=== PATIENT | female | born 1990 | race Caucasian/White ===

== ENCOUNTER 2022-07-08 11:52 | Emergency (ER) | payer OTHER, SELFPAY ==
[2022-07-08 12:01] VITALS: BP 108/48; PULSE 99; RESP 16; TEMP 37.2; O2SAT 100
--- NOTE | 2022-07-08 12:05 | ECG_ITS ---
Measurements Intervals [place] Rate: 96 P: 25 OR: 169 QRS: 59 QRSD: 74 T: 23 QT: 326 QTc: 412 Interpretive Statements SINUS RHYTHM BORDERLINE ST-T WAVE ABNORMALITY- INFERIOR LEADS BORDERLINE ECG NO PREVIOUS ECG AVAILABLE FOR COMPARISON Electronically Signed On 07-08-2022 12:29:08 CRM SYSTEM ADMINISTRATOR by Vin Leach D.O.
[2022-07-08 13:03] VITALS: BP 104/62; BP 107/60; BP 109/58; PULSE 90; PULSE 92; PULSE 97; RESP 18; O2SAT 100
[2022-07-08 13:05] VITALS: BP 113/67; PULSE 105
[2022-07-08 13:38] LABS: Appearance Urine Clear (Clear); Bilirubin Urine Negative (Negative); Blood Urine Negative (Negative); Color Urine Yellow (Yellow); Glucose Urine UA Negative (Negative); Ketones Urine Negative (Negative); Leukocyte Esterase Ur Negative LEU/UL (Negative); Nitrate Urine Negative (Negative); Protein Urine Negative (Negative); Urobilinogen Urine 0.2 mg/dL (<2.0); pH Urine 6.5 (5.0-9.0)
[2022-07-08] MEDS: SODIUM CHLORIDE 0.9% IV 1,000 ML 999 ML IV CONT (13:50)
[2022-07-08 14:08] LABS: Influenza A QL RT-PCR Positive (Negative); Influenza B QL RT-PCR Negative (Negative); SARS-CoV-2 RNA PCR Negative
[2022-07-08 14:12] LABS: Add Urine Microscopic? NO
[2022-07-08 14:16] LABS: Hematocrit 33.9 % (37.0-47.0); Hemoglobin 11.7 g/dL (12.0-15.0); Mean Corpuscular HGB Conc 34.5 g/dl (32-36); Mean Corpuscular Volume 89.7 fl (80-100); Mean Platelet Volume 10.2 fl (7.4-10.4); Platelet Count Result 190 k/mm3 (150-375); Red Blood Count 3.78 M/mm3 (4.2-5.4); Red Cell Distribution Width 12.7 % (11.5-14.5); White Blood Count 6.9 K/mm3 (4.5-10.0)
[2022-07-08 14:20] LABS: Anion Gap 7 mmol/L (8-16); Blood Urea Nitrogen 7 mg/dL (7-17); Calcium 9.1 mg/dL (8.4-10.2); Carbon Dioxide 22 mmol/L (22-30); Chloride 103 mmol/L (98-107); Estimated CRCL calculation 115 ml/min; Estimated Glomerular Filt Rate > 60; Glucose 87 mg/dL (65-110); Potassium 3.6 mmol/L (3.4-5.0); Sodium 132 mmol/L (137-145)
[2022-07-08 14:41] LABS: Band Neutrophils Percent 7 % (0-6); Eosinophils Absolute Manual 0.06 K/mm3 (0.02-0.5); Eosinophils Percent Manual 1 % (0-4); Lymphocytes Absolute Manual 0.06 K/mm3 (1.1-4.5); Monocytes Absolute Manual 0.27 K/mm3 (0.1-0.90); Monocytes Percent Manual 4 % (3-9); Neutrophils Absolute Manual 6.48 K/mm3 (1.7-7.2); Neutrophils Percent Manual 87 % (46-73); Platelet Estimate Adequate (Adequate); Schistocytes None Seen (NORMAL); Total Cells Counted 100
--- NOTE | 2022-07-08 15:09 | ED.SYNCOPE ---
HPI - Syncope General Chief Complaint: Syncope Stated Complaint: , syncope Time Seen by Provider: 07/08/22 12:39 History of Present Illness HPI narrative: Patient is a 31-year-old female who presents ER after a near syncopal episode at work. She felt her self blacking out and lowered herself to the ground. She has been having a cough and fatigue over the last 2 days. Reports she had COVID a couple weeks ago. No chest pain or chest pressure. No urinary frequency urgency or dysuria. She reports she has not yet eaten today. No vaginal bleeding or leakage of fluid. She is 13 weeks in gestation. Related Data Allergies Allergy/AdvReac Type Severity Reaction Status Date / Time No Known Allergies Allergy Verified 07/08/22 13:48 Review of Systems Review of Systems: All systems reviewed & are unremarkable except as noted in HPI and below Constitutional: Constitutional: Denies chills, Reports fatigue, Reports fever(s) and Reports weakness ENT: Reports nasal congestion and Reports sore throat Cardiovascular: Cardiovascular: Denies chest pain, Denies rapid heart rate and Denies radiating jaw, neck or arm pain Respiratory: Respiratory: Denies cough and Denies dyspnea Gastrointestinal: Gastrointestinal: Denies abdominal pain, Denies nausea and Denies vomiting Musculoskeletal: Musculoskeletal: Reports myalgias, Denies arthralgias and Denies joint swelling Neurologic: Reports syncope (near), Denies headache(s), Denies focal weakness and Denies numbness PMFSH Past Medical History Medical History (Updated 07/08/22 @ 15:21 by Martín Garcia MD) Healthy female adult Surgical History Surgical History (Updated 07/08/22 @ 15:21 by Martín Garcia MD) No history of previous surgery Social History Social History (Updated 07/08/22 @ 15:21 by Martín Garcia MD) Smoking status: Never smoker Exam Narrative: GENERAL: Well-appearing, well-nourished, and in no acute distress. HEAD: Normocephalic, atraumatic. ENT: Mucous membranes moist. CHEST: Clear to auscultation. No respiratory distress. HEART: Regular rate and rhythm. Normal peripheral pulses. ABDOMEN: Soft, nontender, nondistended. EXTREMITIES: Normal range of motion. No edema. SKIN: Warm, dry, no rash. NEURO: Alert and oriented x3. PSYCH: Normal mood and affect. Course Course Emergency Course: Patient resting comfortably. Hydrated. Informed of results. heart tones present. Will start on Tamiflu. Vital Signs Vital signs: Vital Signs Temperature 99 F 07/08/22 12:01 Pulse Rate 99 07/08/22 12:01 Respiratory Rate 16 07/08/22 12:01 Blood Pressure 108/48 L 07/08/22 12:01 Pulse Oximetry 100 07/08/22 12:01 Oxygen Delivery Room Air 07/08/22 12:01 Temperature 99 F 07/08/22 12:01 Pulse Rate 105 H 07/08/22 13:05 Respiratory Rate 18 07/08/22 13:03 Blood Pressure 113/67 07/08/22 13:05 Pulse Oximetry 100 07/08/22 13:03 Oxygen Delivery Room Air 07/08/22 12:01 MDM - Syncope Lab Data Result diagrams: 07/08/22 13:42 07/08/22 13:42 Labs: Lab Results 07/08/22 07/08/22 07/08/22 Range/Units 13:16 13:16 13:42 WBC 6.9 (4.5-10.0) K/mm3 RBC 3.78 L (4.2-5.4) M/mm3 Hgb 11.7 L (12.0-15.0) g/dL Hct 33.9 L (37.0-47.0) % MCV 89.7 (80-100) fl MCH 31.0 (26-34) pg MCHC 34.5 (32-36) g/dl RDW 12.7 (11.5-14.5) % Plt Count 190 (150-375) k/mm3 MPV 10.2 (7.4-10.4) fl Immature Gran % (Auto) Not Reportable Neut % (Auto) Not Reportable Lymph % (Auto) Not Reportable [place] % (Auto) Not Reportable Eos % (Auto) Not Reportable Baso % (Auto) Not Reportable Lymph # (Auto) Not Reportable [place] # (Auto) Not Reportable Eos # (Auto) Not Reportable Baso # (Auto) Not Reportable Abs Immat Gran (auto) Not Reportable Absolute Neuts (auto) Not Reportable Absolute Nucleated RBC Not Repo
[2022-07-08 15:19] VITALS: BP 104/67; PULSE 90; RESP 18; O2SAT 100
== END 2022-07-08 15:43 | disposition home or self-care (01) ==
PROVIDERS: Emergency Provider Emergency Medicine; PCP Obstetrics & Gynecology
DX: O99.511 Diseases of the respiratory system complicating pregnancy, first trimester (principal); J10.1 Influenza due to other identified influenza virus with other respiratory manifestations; R55 Syncope and collapse; Z20.822 Contact with and (suspected) exposure to COVID-19; Z86.16 Personal history of COVID-19; Z3A.13 13 weeks gestation of pregnancy
CPT/HCPCS: 36415; 80048; 81003; 81025; 85025; 87636; 93005; 96360; 99283; J7030

== ENCOUNTER 2023-01-05 18:49 | Inpatient (IN) | payer BC, SELFPAY ==
--- NOTE | 2023-01-05 19:16 | LDADM ---
This patient, Celena Foley, was admitted to Labor/Delivery/Recovery 108 on 01/05/23 at 18:49. Plans for labor, pain management and were discussed with patient. Patient/family oriented to hospital policies and general routines including ID bracelet, bed and alarms, visiting hours, pain management, procedures, bathroom and other care routines, personal items, smoking policy, room service/diet and guest tray routines, security routines, and visiting hours. Patient/Family are encouraged to report perceived risks to care and to ask questions if they do not understand what they are told or what they should do. See OBIX for further documentation.
[2023-01-05 19:21] VITALS: BMI 36.3
[2023-01-05 20:04] LABS: Basophils Percent Auto 0.3 % (0.2-1.2); Eosinophils Percent Auto 0.4 % (0-4.4); Hematocrit 35.6 % (37.0-47.0); Hemoglobin 12.2 g/dL (12.0-15.0); Immature Granulocyte Absolute 0.09 K/mm3 (0.00-0.031); Immature Platelet Fraction Pct 11.1 % (0.9-11.2); Lymphocytes Absolute Auto 1.92 K/mm3 (0.9-3.2); Lymphocytes Percent Auto 21.1 % (18.3-44.2); Mean Corpuscular HGB Conc 34.3 g/dl (32-36); Mean Corpuscular Volume 90.4 fl (80-100); Mean Platelet Volume 11.9 fl (7.4-10.4); Monocytes Absolute Auto 0.6 K/mm3 (0.1-0.6); Monocytes Percent Auto 6.8 % (2.6-8.5); Neutrophils Absolute Auto 6.4 K/mm3 (1.3-6.7); Neutrophils Percent Auto 70.4 % (45.5-73.1); Platelet Count Result 122 k/mm3 (150-375); Red Blood Count 3.94 M/mm3 (4.2-5.4); Red Cell Distribution Width 13.5 % (11.5-14.5); White Blood Count 9.1 K/mm3 (4.5-10.0)
[2023-01-05 20:20] VITALS: BP 122/57; PULSE 63
[2023-01-05 20:30] VITALS: BP 119/69; PULSE 61
[2023-01-05 20:33] LABS: Platelet Estimate Adequate (Adequate)
[2023-01-05 20:34] LABS: Anisocytosis 2+ (NORMAL); Microcytosis 2+ (NORMAL); Tear Drop Cells 1+ (NORMAL)
[2023-01-05 20:35] LABS: Burr Cells 2+ (NORMAL); Schistocytes None Seen (NORMAL)
[2023-01-05 20:36] LABS: Poikilocytosis 2+ (NORMAL)
[2023-01-05] MEDS: LACTATED RINGERS 1,000 ML 125 ML IV CONT (20:36)
[2023-01-05] MEDS: OXYTOCIN 30 UNITS/NS 500 ML 30 UNITS/500 ML BAG IV CONT (20:38)
[2023-01-05 20:45] VITALS: BP 124/65; PULSE 70
--- NOTE | 2023-01-05 22:58 | WPDANESEPPF ---
Anes - Initial Pre Proc Eval Procedure: Labor epidural Date/Time: 01/05/23 22:58 Surgeon: Marci Don CNM Pre Op Diagnosis: Abdominal pain with contractions Pre Op Diagnosis: IOL Patient Data Age: 32 Gender: F Height: 1.57 m Weight: 90 kg Last Vital Signs Pulse 70 01/05/23 20:45 BP 124/65 01/05/23 20:45 O2 Del Method Room Air 01/05/23 19:16 Allergies Allergy/AdvReac Type Severity Reaction Status Date / Time No Known Allergies Allergy Verified 12/12/22 13:54 Home Medications Medication Instructions Recorded Confirmed Type cetirizine 5 mg tablet 5 mg PO DAILY PRN Allergy Symptoms 12/12/22 12/12/22 History prenat.vits,funmi,[id number] 1 tablet PO DAILY 12/12/22 12/12/22 History Laboratory Tests 01/05/23 19:36 WBC 9.1 K/mm3 (4.5-10.0) RBC 3.94 L M/mm3 (4.2-5.4) Hgb 12.2 g/dL (12.0-15.0) Hct 35.6 L % (37.0-47.0) MCV 90.4 fl (80-100) MCH 31.0 pg (26-34) MCHC 34.3 g/dl (32-36) RDW 13.5 % (11.5-14.5) Plt Count 122 L k/mm3 (150-375) MPV 11.9 H fl (7.4-10.4) Immature Gran % (Auto) 1.0 H % (0-0.5) Neut % (Auto) 70.4 % (45.5-73.1) Lymph % (Auto) 21.1 % (18.3-44.2) [place] % (Auto) 6.8 % (2.6-8.5) Eos % (Auto) 0.4 % (0-4.4) Baso % (Auto) 0.3 % (0.2-1.2) Lymph # (Auto) 1.92 K/mm3 (0.9-3.2) [place] # (Auto) 0.6 K/mm3 (0.1-0.6) Eos # (Auto) 0.0 K/mm3 (0-0.3) Baso # (Auto) 0.0 K/mm3 (0.0-0.1) Abs Immat Gran (auto) 0.09 H K/mm3 (0.00-0.031) Absolute Neuts (auto) 6.4 K/mm3 (1.3-6.7) Absolute Nucleated RBC 0.0 K/mm3 (0.0-0.012) Nucleated RBC % 0.0 % (0.0-0.2) Platelet Estimate Adequate (Adequate) % Immature Plt Fraction 11.1 % (0.9-11.2) Poikilocytosis 2+ (NORMAL) Anisocytosis 2+ (NORMAL) Microcytosis 2+ (NORMAL) Tear Drop Cells 1+ (NORMAL) [place] Cells 2+ (NORMAL) Schistocytes None seen (NORMAL) RPR Pending Blood Type A Positive Antibody Screen Negative : gestational age HCG: positive Patient hx anesthesia problems: none Family hx anesthesia problems: none Results Review: All pre-operative results and documents have been reviewed as part of the pre-operative evaluation. [facility] Past Medical History Medical History Healthy female adult Obesity and not yet delivered Surgical History Surgical History No history of previous surgery Family History Family History Mother Pacemaker Father Diabetes mellitus Grandparent Cancer Social History Social History (Updated 07/08/22 @ 15:21 by Martín Garcia MD) Smoking status: Never smoker Substance use: never Lack of Transportation: No Lack of Food: Never True Current Housing: I Have Housing Concerned About Future Housing: No Difficulty Paying Gas/Electric Bills: No Difficulty Paying for Meds: No Currently Unemployed: No Education: Associate Degree Difficulty w/ Childcare or Family Care: No Spiritual care concerns: No Anes - Eval Final PreProcedure Day of Procedure 01/05/23 22:58 Patient weight: obese Airway: Mallampati scale class II Neurological: alert and oriented ASA classification: II Anesthetic plan: proceed Results Review: All pre-operative results and documents have been reviewed as part of the pre-operative evaluation. Informed Consent: The patient's anesthetic plan and its attendant risks and benefits were discussed with the patient/family/POA. Questions were solicited and answers provided to the satisfaction of the patient/family/POA.
[2023-01-05 23:00] VITALS: BP 119/75; PULSE 81
[2023-01-05 23:30] VITALS: BP 85/46; PULSE 64
[2023-01-06] VITALS (153 sets, daily range): BP systolic 63–125; BP diastolic 29–93; PULSE 50–284; RESP 18; TEMP 36.2–37.6; O2SAT 97–100
[2023-01-06] MEDS: LACTATED RINGERS 1,000 ML 125 ML IV CONT (04:20)
--- NOTE | 2023-01-06 06:54 | WPDOBADMIT ---
Obstetrics - Admit Note Admission Note: record reviewed. No pertinent additions to the history and/or any subsequent changes in the physical findings that are not consistent with the expected course of the were found. IOL, SVE /-2,AROM small amount of clear, odorless fluid, anticipate vaginal delivery Additions to the history and/or subsequent changes in the physical findings follow. None.
[2023-01-06] MEDS: FAMOTIDINE 20 MG/2 ML VIAL IV PUSH (06:55)
[2023-01-06 08:03] LABS: Rapid Plasma Reagin Non-Reactive (NonReactive)
--- NOTE | 2023-01-06 13:17 | PM.OBPRVD ---
OB - Delivery Note Procedure Delivery date: 01/06/23 Procedure: Induction method: AROM and Per Pitocin Protocol Delivery monitor: External FHT and External Uterine Route of delivery: Episiotomy description: None Laceration Description: Labial (right) and Other (hymenal ring) Delivery repair: vicryl Specimen: No Quantitative Blood Loss (ml): 210 Anesthesia type: Epidural Disposition: Floor Baby Date of : 01/06/23 Time of : 12:57 Weeks of gestation at delivery: 39 gender: Male presentation: vertex position: Left Occiput Anterior Placenta delivery description: Spontaneous Cord Vessel Description: 3 Vessels, Clamped/Cut and Delayed Cord Clamping score one minute: 9 score five minutes: 9
[2023-01-06] MEDS: OXYTOCIN 30 UNITS/NS 500 ML 30 UNITS/500 ML BAG 125 UNITS IV CONT (13:29)
[2023-01-06] MEDS: WITCH HAZEL 40 PADS 1 PAD TOPICAL (15:38)
--- NOTE | 2023-01-06 16:02 | OBPPTRN ---
Patient transferred to post room #292 via wheelchair. Support person present. Oriented to unit, room, information board, rooming in, admission packet and security measures. Patient verbalizes understanding.
[2023-01-06] MEDS: ACETAMINOPHEN 325 MG TABLET 650 MG PO (16:26)
[2023-01-07] MEDS: ACETAMINOPHEN 325 MG TABLET 650 MG PO ×2 (00:42→08:12)
[2023-01-07 01:38] VITALS: BP 115/50; PULSE 70; RESP 20; TEMP 37; O2SAT 100
[2023-01-07 05:37] LABS: Hematocrit 33.3 % (37.0-47.0); Hemoglobin 11.1 g/dL (12.0-15.0)
[2023-01-07] MEDS: DOCUSATE SODIUM 100 MG CAPSULE PO (08:12)
[2023-01-07] MEDS: MULTIVIT/MIN/PREN/FOL AC/IRON TABLET 1 TAB PO (08:12)
[2023-01-07] MEDS: LANOLIN (LANSINOH) 7.5 GM CREAM 1 APPLIC TOPICAL (08:14)
--- NOTE | 2023-01-07 08:34 | PM.OBPNVD ---
OB - PN: Subj Subjective Date/time seen: 01/07/23 08:34 Patient comments: no complaints, pain well controlled, incisional pain, tolerating diet and flatus present OB - PN: Obj Data Labs 01/07/23 04:58 Labs: Laboratory Results - last 24 hr 01/07/23 04:58 Hgb 11.1 L Hct 33.3 L OB - PN A/P Plan day: 1 Plan: routine care Comments: No problems, routine care Time Spent With Patient Time: Total time spent is greater than 50% in coordination of care (as documented) at patient's floor/unit and/or counseling patient: Exam Const: General: comfortable, no acute distress and alert Resp: Effort & Inspection: normal respiratory effort Auscultation: no crackles, no rales and no rhonchi Cardio: Rate: regular rate Heart sounds: no click, no murmurs and no rubs GI: Inspection: non-distended GI Palp: No Tenderness to palpation present (GI) Auscultation: normal bowel sounds Other: Incision - CDI Extrem: General: normal to inspection, no pedal edema and no calf tenderness
[2023-01-07 09:25] VITALS: BP 112/52; PULSE 61; RESP 18; TEMP 36.7; O2SAT 99
--- NOTE | 2023-01-07 11:11 | WPDANLDPN2 ---
Anes-Prog Note L&D Date/Time: 01/07/23 11:11 Neuro status: Neuro function grossly intact. Vital Signs: Last Vital Signs Temp 36.7 C 01/07/23 09:25 Pulse 61 01/07/23 09:25 Resp 18 01/07/23 09:25 BP 112/52 L 01/07/23 09:25 Pulse Ox 99 01/07/23 09:25 O2 Del Method Room Air 01/06/23 16:02 Pain score (VAS): 0 I/O: Intake & Output 01/06/23 01/07/23 01/07/23 23:59 07:59 15:59 Intake Total 0 Balance 0 Patient feedback: Patient satisfied with anesthetic care.
[2023-01-07 13:05] VITALS: BP 121/69; PULSE 73; RESP 16; TEMP 36.5; O2SAT 100
[2023-01-07 19:05] VITALS: BP 110/43; PULSE 68; RESP 16; O2SAT 99
[2023-01-08] MEDS: ACETAMINOPHEN 325 MG TABLET 650 MG PO ×2 (02:42→08:16)
--- NOTE | 2023-01-08 07:29 | PM.OBPNVD ---
OB - PN: Subj Subjective Date/time seen: 01/08/23 07:29 s/p vaginal delivery day 2 doing well, pain managed OB - PN: Obj Data Labs 01/07/23 04:58 OB - PN A/P Plan day: 2 Plan: routine care and discharge home Time Spent With Patient Time: Total time spent is greater than 50% in coordination of care (as documented) at patient's floor/unit and/or counseling patient: Review of Systems Review of Systems: All systems reviewed & are unremarkable except as noted in HPI and below Exam Const: General: cooperative, healthy appearing and comfortable Resp: Effort & Inspection: normal respiratory effort Skin: General skin exam: normal color Psych: Appearance: grossly normal
[2023-01-08 07:30] VITALS: BP 94/50; PULSE 65; RESP 16; TEMP 36.7; O2SAT 100
--- NOTE | 2023-01-08 07:47 | PM.OBDSVD ---
DS: Admitting Diagnosis Discharge Date 01/08/23 Admitting Diagnosis IOL DS: Discharge Diagnosis Discharge Diagnosis (1) Vaginal delivery: Code(s): O80 - Encounter for full-term uncomplicated delivery Status: Acute OB - DS: Summary OB Procedures : None OB Procedures Intrapartum: Spontaneous Vag Delivery OB Procedures: : None Time Spent with Patient Time attestation: Total time spent providing and/or coordinating discharge services: Discharge Plan Discharge Attending physician on discharge: Michael Hamilton Discharging Clinician: Marci Don Patient Disposition: Home, Self-Care Activity: pelvic rest Diet: regular Patient Instructions: Antibiotic Form Stand Alone Forms: General Discharge Information Follow-up/Referrals: Marci Don CNM [Certified Nurse Online Community Manager] - 4 Weeks Discharge Medications: New ibuprofen 600 mg Tablet 600 mg PO Q6H PRN (Reason: Cramping) Qty: 30 0RF Continued cetirizine [Zyrtec] 5 mg Tablet 5 mg PO DAILY PRN (Reason: Allergy Symptoms) #2 Tablet 1 tablet PO DAILY Date of admission: 01/05/23 18:49 Primary Care Provider: PHYSICIAN,DROP WORKER Admitting Provider: Michael Hamilton Attending physician on admission: Marci Don Condition: Stable
[2023-01-08] MEDS: DOCUSATE SODIUM 100 MG CAPSULE PO (08:16)
[2023-01-08] MEDS: MULTIVIT/MIN/PREN/FOL AC/IRON TABLET 1 TAB PO (08:16)
--- NOTE | 2023-01-08 09:43 | PC.NURSE ---
Patient viewed the discharge video Mother & Baby Care, The First Two Weeks . Patient was given the opportunity and encouraged to ask questions. Patient verbalized understanding of information shared and has been given the mother/baby guide for home reference.
== END 2023-01-08 15:10 | disposition home or self-care (01) | DRG 807 ==
LOC: ANHLDR 01-06 11:43 → ANHOB2 01-08 07:30 → ANHLDR 01-12 10:00 → ANHOB2 01-12 10:00
PROVIDERS: Advanced Practice Midwife; Admitting Provider Obstetrics & Gynecology; Visit Provider Obstetrics & Gynecology
DX: O70.0 First degree perineal laceration during delivery (principal); Z37.0 Single live birth; Z3A.39 39 weeks gestation of pregnancy
CPT/HCPCS: 36415; 85014; 85018; 85025; 85055; 86592; 86850; 86900; 86901; A9270; J2590; J2795; J7120

== ENCOUNTER 2023-12-03 09:00 | Emergency (ER) | payer BC, SELFPAY ==
--- NOTE | ~2023-12-03 | CT_ITS ---
CT of the Abdomen and Pelvis: Indication: Abdominal pain Technique: 2.5 mm axial scans were obtained through the abdomen and pelvis following intravenous adm inistration of 100 cc of Omnipaque 350. Dose reduction technique was used on this scan by utilizing a utomated exposure control and iterative reconstruction technique. The dose-length product (DLP) was 5 41.27 mGy-cm. Findings: Scans through the lung bases are unremarkable. The liver, spleen, pancreas, gallbladder, adrenals and kidneys are within normal limits. No evidence of aortic aneurysm. No lymphadenopathy. No bowel obstruction or bowel wall thickening. Probable small bowel lipoma noted in the left abdomen measuring 1.4 cm (axial image 64). There is no evidence to suggest acute appendicitis. Images through the pelvis were performed. Urinary bladder unremarkable. No pelvic mass seen. No ascit es. Impression: No significant abnormalities seen. Reviewed, dictated and finalized at [facility]. Impression: No significant abnormalities seen.
--- NOTE | ~2023-12-03 | US_ITS ---
EXAMINATION: US pelvic complete DATE: 12/03/2023 12:31 INDICATION: RLQ abd pain TECHNIQUE: Multiple transabdominal sonographic images of the pelvis were obtained. COMPARISON: None. FINDINGS: Uterus: 7.7 x 3.0 x 4.9 cm. Endometrial complex measures 5 mm. Right Ovary: 3.0 x 1.6 x 2.7 cm. Vascular flow is present. No adnexal mass. Left Ovary: 3.4 x 1.5 x 2.0 cm. Vascular flow is present. No adnexal mass. There is no free fluid in the pelvis. IMPRESSION: Normal transabdominal pelvic sonogram findings. Reviewed, dictated and finalized at location K.
[2023-12-03 09:09] VITALS: BP 113/62; PULSE 81; TEMP 36.7; O2SAT 98
--- NOTE | 2023-12-03 09:17 | ED.ABDPAIN ---
HPI - Abdominal Pain General Chief Complaint: Abdominal Pain Stated Complaint: RLQ abdominal pain Time Seen by Provider: 12/03/23 09:06 History of Present Illness HPI narrative: 32-year-old female with no significant past medical history presents to emergency department for right lower quadrant abdominal pain for the past few days. Patient states the pain feels like a pulling sensation is worse with movement. She also states it feels like period cramps. LMP 1 week ago and normal. LBM 2 days ago and normal. She had a vaginal delivery in December of 2022, otherwise no recent abdominal surgeries or procedures. She denies vaginal discharge or concern for STDs. She denies fever, nausea vomiting, diarrhea, dysuria or hematuria. She is currently . Related Data Home Medications Medication Instructions Recorded Confirmed cetirizine 5 mg tablet 5 mg PO DAILY PRN Allergy Symptoms 12/12/22 12/12/22 prenat.vits,funmi,[id number] 1 tablet PO DAILY 12/12/22 12/12/22 Allergies Allergy/AdvReac Type Severity Reaction Status Date / Time No Known Allergies Allergy Verified 12/03/23 09:29 Review of Systems Review of Systems: CONSTITUTIONAL: Denies fever, chills, or sweats. EYES: Denies visual changes, redness, or discharge. ENT: Denies rhinorrhea, congestion, sore throat, or otalgia. CARDIOVASCULAR: Denies chest pain, palpitations, or edema. RESPIRATORY: Denies cough or dyspnea. GASTROINTESTINAL: See HPI GENITOURINARY: Denies dysuria or hematuria. SKIN: Denies rash or itching. MUSCULOSKELETAL: Denies back pain, joint pain, or myalgia. NEUROLOGIC: Denies headache, numbness, or weakness. PSYCHIATRIC: Denies anxiety or depression. [facility] Past Medical History Medical History Healthy female adult Obesity and not yet delivered Surgical History Surgical History No history of previous surgery Family History Family History Mother Pacemaker Father Diabetes mellitus Grandparent Cancer Social History Social History Smoking status: Never smoker Substance use: never Lack of Transportation: No Lack of Food: Never True Current Housing: I Have Housing Concerned About Future Housing: No Difficulty Paying Gas/Electric Bills: No Difficulty Paying for Meds: No Currently Unemployed: No Education: Associate Degree Difficulty w/ Childcare or Family Care: No Spiritual care concerns: No Exam Narrative: GENERAL: Well-appearing, well-nourished, and in no acute distress. HEAD: Normocephalic, atraumatic. EYES: PERRLA and EOMI. ENT: Nares clear, no rhinorrhea or epistaxis. Mucous membranes moist. NECK: Supple. CHEST: Clear to auscultation. No respiratory distress. HEART: Regular rate and rhythm. No murmur heard. Normal peripheral pulses. ABDOMEN: Normoactive bowel sounds. Abdomen soft with mild tenderness in the right lower quadrant. No rebound, guarding or rigidity. Negative Rovsing's and obturator sign. No CVA tenderness. EXTREMITIES: Normal range of motion. No edema. SKIN: Warm, dry, no rash. NEURO: No focal deficits. Alert and oriented x3 Course Vital Signs Vital signs: Vital Signs Temperature 98.0 F 12/03/23 09:09 Pulse Rate 81 12/03/23 09:09 Blood Pressure 113/62 12/03/23 09:09 Pulse Oximetry 98 12/03/23 09:09 Temperature 97.8 F 12/03/23 09:26 Pulse Rate 67 12/03/23 11:11 Respiratory Rate 18 12/03/23 11:11 Blood Pressure 98/60 L 12/03/23 11:11 Pulse Oximetry 100 12/03/23 11:11 Oxygen Delivery Room Air 12/03/23 09:26 MDM - Abdominal Pain MDM Narrative Medical decision making narrative: 32-year-old female with no significant past medical history presents to the emergency department for right lower
[2023-12-03 09:26] VITALS: BP 102/52; PULSE 74; RESP 15; TEMP 36.6; O2SAT 99
[2023-12-03 10:03] LABS: Basophils Percent Auto 0.3 % (0.2-1.2); Eosinophils Absolute Auto 0.1 K/mm3 (0-0.3); Eosinophils Percent Auto 0.7 % (0-4.4); Hematocrit 43.1 % (37.0-47.0); Hemoglobin 14.3 g/dL (12.0-15.0); Immature Granulocyte Absolute 0.02 K/mm3 (0.00-0.031); Immature Granulocyte Percent A 0.3 % (0-0.5); Lymphocytes Absolute Auto 1.79 K/mm3 (0.9-3.2); Lymphocytes Percent Auto 25.9 % (18.3-44.2); Mean Corpuscular HGB Conc 33.2 g/dl (32-36); Mean Corpuscular Hemoglobin 29.9 pg (26-34); Mean Corpuscular Volume 90.2 fl (80-100); Mean Platelet Volume 9.6 fl (7.4-10.4); Monocytes Absolute Auto 0.3 K/mm3 (0.1-0.6); Monocytes Percent Auto 4.9 % (2.6-8.5); Neutrophils Absolute Auto 4.7 K/mm3 (1.3-6.7); Neutrophils Percent Auto 67.9 % (45.5-73.1); Platelet Count Result 245 k/mm3 (150-375); Red Blood Count 4.78 M/mm3 (4.2-5.4); Red Cell Distribution Width 12.7 % (11.5-14.5); White Blood Count 6.9 K/mm3 (4.5-10.0)
[2023-12-03 10:07] LABS: Appearance Urine Clear (Clear); Bacteria Urine None Seen /hpf; Bilirubin Urine Negative (Negative); Blood Urine Negative (Negative); Color Urine Yellow (Yellow); Glucose Urine UA Negative (Negative); Ketones Urine Negative (Negative); Leukocyte Esterase Ur Negative LEU/UL (Negative); Nitrate Urine Negative (Negative); Non Pathogenic Casts 0-2; Protein Urine Trace mg/dL (Negative); RBC Urine 0-2 /hpf (0-2); Specific Grav Ur 1.024 (1.001-1.035); Squamous Epithelial Cell Urine None Seen /hpf (Few); Urobilinogen Urine 0.2 mg/dL (<2.0); WBC Urine 0-5 /hpf (0-3); pH Urine 8.5 (5.0-9.0)
[2023-12-03 10:09] LABS: Add Urine Microscopic? YES
[2023-12-03 10:13] LABS: Lactic Acid Reflex 0.7 mmol/L (0.7-2.0)
[2023-12-03 10:14] LABS: Alanine Aminotransferase 14 U/L (6-35); Albumin Level 4.9 g/dL (3.5-5.1); Alkaline Phosphatase 97 U/L (38-126); Anion Gap 6 mmol/L (4-12); Aspartate Amino Transferase 23 U/L (14-36); Blood Urea Nitrogen 15 mg/dL (7-17); Calcium 9.7 mg/dL (8.4-10.2); Carbon Dioxide 30 mmol/L (22-30); Chloride 107 mmol/L (98-107); Estimated CRCL calculation 100 ml/min; Estimated Glomerular Filt Rate > 60; Glucose 91 mg/dL (65-110); Lipase 102 U/L (23-300); Sodium 143 mmol/L (137-145)
--- NOTE | 2023-12-03 11:09 | PC.NURSE ---
Report given to Siri MOROCHO, all questions answered
[2023-12-03 11:11] VITALS: BP 98/60; PULSE 67; RESP 18; O2SAT 100
== END 2023-12-03 13:43 | disposition home or self-care (01) ==
PROVIDERS: Emergency Provider Physician Assistant; Referring Provider Emergency Medicine
DX: R10.31 Right lower quadrant pain (principal); E66.9 Obesity, unspecified; Z68.30 Body mass index [BMI] 30.0-30.9, adult
CPT/HCPCS: 36415; 74177; 76856; 80053; 81001; 81025; 83605; 83690; 85025; 99284; Q9967

== ENCOUNTER 2024-11-01 14:00 | Outpatient (CLI) | payer BC, SELFPAY ==
--- OUTSIDE RECORDS SUMMARY | 2024-11-01 15:40 | XMS_ITS | Referral Summary ---
Author Organization [address] Address [address] [place] [id number] Care Team Providers Care Asphalt Heater Operator Name Role Phone No, Physician Primary Care Provider [phone] Encounters Date Type Department Care Team Description 10/07/2024 3:00 PM METAL SMELTER Office Visit [facility] [address] [place] [address] Ida Lou NP Cough, unspecified type (Primary Dx); Upper respiratory tract infection, unspecified type from Last 3 Months Allergies No known active allergies Medications vit,funmi 74/iron/folic ( VITAMIN 1+1 ORAL) Active cetirizine (ZyrTEC) 10 mg capsule Active ondansetron ODT (ZOFRAN-ODT) 4 mg disintegrating tablet DISSOLVE 1 TABLET ON THE TONGUE EVERY 8 HOURS Active Active Problems Estimated Date of Delivery Comme nts Yes 04/16/2025 No known active problems Social History Tobacco Use Types Packs/Day Years Used Date Smoking Tobacco: Every Day Vaping Smokeless Tobacco: Never Tobacco Cessation:Ready to Q uit: Not Asked; Counseling Given: Not Answered Estimated Date of Delivery Comme nts Yes 04/16/2025 Sex and Gender Information Value Date Recorded Sex Assigned at Not on file Legal Sex Female 10:47 PM METAL SMELTER Gender Identity Not on file Sexual Orientation Not on file Last Filed Vital Signs Vital Sign Reading Time Taken Comments Blood Pressure 112/58 10/07/2024 3:15 PM METAL SMELTER Pulse 80 10/07/2024 3:15 PM METAL SMELTER Temperature 36.8 C (98.2 F) 10/07/2024 3:15 PM METAL SMELTER Respiratory Rate 20 10/07/2024 3:15 PM METAL SMELTER Oxygen Saturation 97% 10/07/2024 3:15 PM METAL SMELTER Inhaled Oxygen Concentration - - Weight 79.4 kg (175 lb) 10/07/2024 3:15 PM METAL SMELTER Height 160 cm (5' 3 ) 07/17/2021 9:09 AM METAL SMELTER Body Mass Index 31 07/17/2021 9:09 AM METAL SMELTER Plan of Treatment Not on file Procedures Procedure Name Priority Date/Time Associated Diagnosis Comments POC INFLUENZA A/B, COVID-19 ANTIGEN Routine 10/07/2024 3:40 PM METAL SMELTER Cough, unspecified type from Last 3 Months Results * POC Influenza A/B, COVID-19 antigen (10/07/2024 3:40 PM METAL SMELTER) Influenza A Ag, POC Negative Negative [facility] Influenza B Ag, POC Negative Negative [facility] COVID-19 Ag POC Presumptive Negative Presumptive Negative, Invalid [facility] Nasal 10/07/2024 3:40 PM METAL SMELTER us Ida Lou NP POINT OF CARE TEST ORDERAB LES Final Result [facility] [address] [place] [address], [facility] from Last 3 Months Insurance [facility] Care Teams Asphalt Heater Operator Relationship Specialty Start Date End Date No, Physician PCP - General 07/16/21
--- OUTSIDE RECORDS SUMMARY | 2024-11-01 15:40 | XMS_ITS | Clinical Summary ---
Author Organization [address] Address [address] [place] [id number] Care Team Providers Care Java Web User Interface Developer Name Role Phone No, Physician Primary Care Provider [phone] Allergies No known active allergies Medications vit,funmi 74/iron/folic ( VITAMIN 1+1 ORAL) Active cetirizine (ZyrTEC) 10 mg capsule Active ondansetron ODT (ZOFRAN-ODT) 4 mg disintegrating tablet DISSOLVE 1 TABLET ON THE TONGUE EVERY 8 HOURS Active Active Problems Estimated Date of Delivery Comme nts Yes 04/16/2025 No known active problems Encounters Date Type Department Care Team Description 10/07/2024 3:00 PM LEAD RECREATION ASSISTANT Office Visit [facility] Care at [address] [place] [address] Ida Lou NP Cough, unspecified type (Primary Dx); Upper respiratory tract infection, unspecified type from Last 3 Months Medical History Medical History Date Comments Asthma Social History Tobacco Use Types Packs/Day Years Used Date Smoking Tobacco: Every Day Vaping Smokeless Tobacco: Never Tobacco Cessation:Ready to Q uit: Not Asked; Counseling Given: Not Answered Estimated Date of Delivery Comme nts Yes 04/16/2025 Sex and Gender Information Value Date Recorded Sex Assigned at Not on file Legal Sex Female 10:47 PM LEAD RECREATION ASSISTANT Gender Identity Not on file Sexual Orientation Not on file Obstetrics History Para Term AB IAB SAB Ectopic Multiple Livin g Live Births 1 Date Outcome GA Total Labor Labor/2nd/3rd Weight Sex Type Anes PTL Kyung A1 A5 Name Clin Current Last Filed Vital Signs Vital Sign Reading Time Taken Comments Blood Pressure 112/58 10/07/2024 3:15 PM LEAD RECREATION ASSISTANT Pulse 80 10/07/2024 3:15 PM LEAD RECREATION ASSISTANT Temperature 36.8 C (98.2 F) 10/07/2024 3:15 PM LEAD RECREATION ASSISTANT Respiratory Rate 20 10/07/2024 3:15 PM LEAD RECREATION ASSISTANT Oxygen Saturation 97% 10/07/2024 3:15 PM LEAD RECREATION ASSISTANT Inhaled Oxygen Concentration - - Weight 79.4 kg (175 lb) 10/07/2024 3:15 PM LEAD RECREATION ASSISTANT Height 160 cm (5' 3 ) 07/17/2021 9:09 AM LEAD RECREATION ASSISTANT Body Mass Index 31 07/17/2021 9:09 AM LEAD RECREATION ASSISTANT Plan of Treatment Health Maintenance Due Date Last Done Comments Cervical Cancer Screening 1992 Depression Screening 1992 Hepatitis C Screening 1992 Varicella Vaccines (1 of 2 - 13+ 2-dose series) 2005 Hepatitis B Screening 2010 Regular Well Visit/Exam 18-64 2010 Pneumococcal vaccine <65 (1 of 2 - PCV) 12/29/2011 Influenza Vaccine (#1) 2024 DTaP/Tdap/Td Vaccine (2 - Td or Tdap) 12/23/2032 12/23/2022 HPV Vaccines Aged Out No longer eligi ble based on patient's age to complete this topic Procedures Procedure Name Priority Date/Time Associated Diagnosis Comments POC INFLUENZA A/B, COVID-19 ANTIGEN Routine 10/07/2024 3:40 PM LEAD RECREATION ASSISTANT Cough, unspecified type from Last 3 Months Results * POC Influenza A/B, COVID-19 antigen (10/07/2024 3:40 PM LEAD RECREATION ASSISTANT) Influenza A Ag, POC Negative Negative [facility] Influenza B Ag, POC Negative Negative [facility] COVID-19 Ag POC Presumptive Negative Presumptive Negative, Invalid [facility] Nasal 10/07/2024 3:40 PM LEAD RECREATION ASSISTANT Ida Lou NURSING UNIT CLERK POINT OF CARE TEST ORDERAB LES [facility] Result [facility] [address] [place] [address], [facility] from Last 3 Months Insurance [facility] Care Teams Java Web User Interface Developer Relationship Specialty Start Date End Date No, Physician PCP - General 07/16/21
--- OUTSIDE RECORDS SUMMARY | 2024-11-01 15:40 | XMS_ITS | Clinical Summary ---
Author Organization [facility] Address [address] [place] [address] Care Team Providers Care Parking Technician Name Role Phone Unknown, Provider Primary Care Provider Unavaila ble Source Comments [facility],non-owned Affiliates and Associated Physician Practices is amultiple site organization consisting of ambulatory clinics and hospital sitesin [place], [place], [place] and [place]. This disclosure is being madepursuant to the Care Everywhere program and may not contain all information available regarding this patient. Last updated 18.[facility] Allergies No known active allergies Medications * Be aware that medications may not be up to date on this document. Alwaysverify current medications with the patient. Medication Sig Dispensed Refills Start Date End Date Status Desogestrel-Ethinyl Estradiol (APRI PO) Activ e hydrocortisone (HYTONE) 1 % ointmentIndications:At opic dermatitis, unspecified type Apply to affected area 4 times daily 0 10/12/2016 Active Social History Tobacco Use Types Packs/Day Years Used Date Smoking Tobacco: Never Sex and Gender Information Value Date Recorded Sex Assigned at Not on file Gender Identity Not on file Sexual Orientation Not on file Last Filed Vital Signs Vital Sign Reading Time Taken Comments Blood Pressure 100/60 10/12/2016 6:23 PM ASSEMBLY AND PACKING SUPERVISOR Pulse 64 10/12/2016 6:23 PM ASSEMBLY AND PACKING SUPERVISOR Temperature 36.2 C (97.2 F) 10/12/2016 6:23 PM ASSEMBLY AND PACKING SUPERVISOR Respiratory Rate 16 10/12/2016 6:23 PM ASSEMBLY AND PACKING SUPERVISOR Oxygen Saturation 99% 10/12/2016 6:23 PM ASSEMBLY AND PACKING SUPERVISOR Inhaled Oxygen Concentration - - Weight 52.2 kg (115 lb) 10/12/2016 6:23 PM ASSEMBLY AND PACKING SUPERVISOR Height 160 cm (5' 3 ) 10/12/2016 6:23 PM ASSEMBLY AND PACKING SUPERVISOR Body Mass Index 20.37 10/12/2016 6:23 PM ASSEMBLY AND PACKING SUPERVISOR Plan of Treatment Health Maintenance Due Date Last Done Comments PAP SMEAR 1992 HIV SCREENING 12/29/2007 HEPATITIS C SCREENING 12/24/2010 DTAP/TDAP/TD VACCINES (1 - Tdap) 12/29/2011 HEPATITIS B VACCINE (1 of 3 - 19+ 3-dose series) 12/29/2011 COVID-19 VACCINE (1 - 2023-2 5 season) 2024 INFLUENZA VACCINE (#1) 2024 DEPRESSION SCREENING 08/16/2024 ZOSTER VACCINE (1 of 2) 2042 HIB VACCINE Aged Out No longer eligi ble based on patient's age to complete this topic HPV VACCINE Aged Out No longer eligi ble based on patient's age to complete this topic MENINGOCOCCAL (Group B) VACC INE SHARED DECISION-MAKING Aged Out No longer eligibl e based on patient's age to complete this topic MENINGOCOCCAL GROUPS A/C/Y/W VACCINE Aged Out No longer eligible b ased on patient's age to complete this topic PNEUMOCOCCAL VACCINE Aged Out No long er eligible based on patient's age to complete this topic Care Teams Parking Technician Relationship Specialty Start Date End Date Unknown, Provider PCP - General 10/12/16
--- OUTSIDE RECORDS SUMMARY | 2024-11-01 15:40 | XMS_ITS | Data Portability ---
Author Organization [facility] [place] Address [address] [place] [place] [address] [place] [address] Assessment No assessment recorded. Plan of Treatment Reminders Order Date Submit Date Provider Last Modified By Organization Details Last Modified Time Details Appointments U/S OB > 14 WKS 2024 03:00P M ULTRASOUND Not available Not available Not available OB ROUTINE 2024 03:30P M Marci Don CNM Not available Not available Not available U/S OB BASELIN E 2024 03:30P M ULTRASOUND Not available Not available Not available OB ROUTINE 2024 04:30P M Michael HAMILTON MD Not available Not available Not available Lab drug screen, urine 2024 025 [facility], [address], [place], [address], 10/04/2024 17:44:39 HbA1c (hemogl obin A1c), blood 2024 025 [facility] (Lab), [address], [place], [address], 10/08/2024 23:55:16 type + screen, serum 2024 025 [facility] (Lab), [address], [place], [address], 10/08/2024 23:55:16 rubella igg Ab, titer, serum 2024 025 [facility] (Lab), [address], [place], [address], 10/08/2024 23:55:16 CBC w/ auto diff 2024 025 [facility] (Lab), [address], [place], [address], 10/08/2024 23:55:15 hepatit is C virus Ab, serum 2024 025 [facility] (Lab), [address], [place], [address], 10/08/2024 23:55:15 HBsAg (hepati tis B surface Ag), serum 2024 025 [facility] (Lab), [address], [place], [address], 10/08/2024 23:55:15 RPR (rapid plasma reagin) , serum 2024 025 [facility] (Lab), [address], [place], [address], 10/08/2024 23:55:16 HIV 1+2 AB + HIV 1 p24 Ag, qualita tive immunoa ssay, serum 2024 025 [facility] (Lab), [address], [place], [address], 10/08/2024 23:55:15 culture , urine 2024 025 [facility] (Lab), [address], [place], [address], 10/08/2024 23:55:27 Referral None recorde d. Procedures None recorde d. Surgeries None recorde d. Imaging US, obstetr ic, nuchal translu cency 2024 025 [email or web address], [address], [address], [place], [address], 10/04/2024 19:11:46 Medication Orders None recorde d. Patient TargetsNo targets recorded. Patient InstructionsNo instructions recorded. Reason for Referral None Reported. Results Created Date Observation Date Name Description Value Unit Range Abnormal Flag Note LastModifiedBy Organization Detail LastModifiedTime 10/12/19 25 10/12/2024 [UNIT Y] ANEUP LOIDY NIPT fraction 10.7% normal Not Available [facility] [address] [facility], [place], [address], 10/12/2024 15:18:15 10/12/19 25 10/12/2024 [UNIT Y] ANEUP LOIDY NIPT 22Q11.2 microdeletio n LOW RISK <1 in 10,000 normal Not Available [facility] [address] [facility], [place], [address], 10/12/2024 15:18:15 10/12/19 25 10/12/2024 [UNIT Y] ANEUP LOIDY NIPT sex chromosome aneuploidy NOT DETECT ED normal Not Available [facility] [address] [facility], [place], [address], 10/12/2024 15:18:15 10/12/19 25 10/12/2024 [UNIT Y] ANEUP LOIDY NIPT monosomy X LOW RISK <1 in 10,000 normal Not Available [facility] [address] [facility], [place], [address], 10/12/2024 15:18:15 10/12/19 25 10/12/2024 [UNIT Y] ANEUP LOIDY NIPT trisomy 13 LOW RISK <1 in 10,000 normal Not Available [facility] [address] [facility], [place], [address], 10/12/2024 15:18:15 10/12/19 25 10/12/2024 [UNIT Y] ANEUP LOIDY NIPT trisomy 18 LOW RISK <1 in 10,000 normal Not Available [facility] [address] [facility], [place], [address], 10/12/2024 15:18:15 10/12/19 25 10/12/2024 [UNIT Y] ANEUP LOIDY NIPT trisomy 21 LOW RISK <1 in 10,000 normal Not Available [facility] [address] [facility], [place], [address], 10/12/2024 15:18:15 10/12/19 25 10/12/2024 [UNIT Y] ANEUP LOIDY NIPT sex FEMALE normal Not Available [facility] [address] [facility], [place], [address], 10/12/2024 15:18:15 10/12/19 25 10/12/2024 [UNIT Y] ANEUP LOIDY NIPT gestation SINGLE TON normal Not Available [facility] [address] [facility], [place], [address], 10/12/2024 15:18:15 10/12/19 25 10/12/2024 [UNIT Y] ANEUP LOIDY NIPT for detailed report, see pdf See PDF normal Not Available [facility] [address] [facility], [place], [address], 10/12/2024 15:18:15 09/07/19 25 09/07/2024 IMAGE GUIDE D PAP AND HPV REGAR DLESS image guided Pap, HPV regardless of Pap result SEE RESULT S BELOW CASE REPOR T: Cytol ogy Gynec ologi funmi Repor t Case: [id number] Autho livan anthony Provi dennis: Marci Ivory NP Colle cted: 09/07 0826 Order ing Locat ion: [place] [facility] Recei reta: 09/08 1023 First Scree n: Sujata Rain een: Radha cruz, Dmiple ed, CT Speci men: Scree rox Pap - Image d, Cervi x STATE MENT OF ADEQU ACY: Satis facto ry for evalu ation Trans forma tion zone compo nent prese nt ----- ----- ----- ----- ----- ----- ----- ----- ----- ----- ----- ----- ----- ----- ----- ----- ----- ---- FINAL DIAGN OSIS: Negat nguyen for Intra epith elial Lesio n or Brian cortes (NIL) . Elect johanny goldberg by Dimple cruz, CT on 2024 at 2118 DIRECTOR PATIENT ----- ----- ----- ----- ----- ----- ----- ----- ----- ----- ----- ----- ----- ----- ----- ----- ----- ---- HPV RESUL TS: HPV mRNA E6/E7 : No HPV mRNA Detec benson NOTE: This high risk HPV mRNA assay detec ts fourt een high- risk HPV types (16, 18, 31, 33, 35, 39, 45, 51, 52, 56, 58, 59, 66, 68) witho ut diffe renti ation . COMME NT: This speci men was revie wed by a Cytot echno logis t and/o r Patho logis t (as indic ated in this repor t) after evalu ation using the Thinp rep Imagi ng Syste m. CLINI FUNMI INFOR MATIO N: Menst rual Statu s: LMP (if appli cable ): Clini funmi Histo ry/Pr eviou s Pap: Type of Neopl kimberlee (if appli cable ): Signi ficsue t Clini funmi Findi ngs: Other Histo ry: Hormo ynes (if appli cable ): PAP EDUCA CINTHIA L NOTE: The Pap Test is a scree rox test with an inher ent false negat nguyen rate. Liqui d-bas ed sampl ing may decre ase, but will not elimi rayshawn, false negat nguyen resul ts. A negat nguyen resul t does not precl ude the prese nce and/o r devel opmen t of disea se, since the prese nce of abnor mal cells in the sampl e depen ds on the locat ion of the lesio n and sampl ing techn ique. To nued regul ar scree rox is the best metho d of cance r preve ntion . If repor benson cytol ogic findi ng do not corre late with physi funmi and/o r histo rical findi ngs, furth er inves tigat ion is recom dionne d, as clini alex warra nted. Not Available [facility] (Lab) [address], [place], [address], 09/13/2024 22:23:17 09/07/19 25 09/07/2024 TRICH OMONA S VAGIN LES (RRNA ) trichomonas vaginalis ribosomal RNA (rrna) Negati ve negati ve Not Available [facility] (Lab) [address], [place], [address], 09/13/2024 22:23:17 09/07/19 25 09/07/2024 CT/GC (BETHANY) , THINP REP VIAL chlamydia trachomatis, PCR Negati ve negati ve Not Available [facility] (Lab) [address], [place], [address], 09/13/2024 22:23:18 09/07/19 25 09/07/2024 CT/GC (BETHANY) , THINP REP VIAL neisseria gonorrhoeae, PCR Negati ve negati ve Not Available [facility] (Lab) [address], [place], [address], 09/13/2024 22:23:18 10/04/19 25 10/04/2024 CBC W/DIF F WBC 9.0 10'3/ uL 3.5-10 .5 Not Available [facility] (Lab) [address], [place], [address], 10/08/2024 23:55:14 10/04/19 25 10/04/2024 CBC W/DIF F RBC 4.26 10'6/ uL (based on docume nted legal sex) 3.80-5 .20 Not Available [facility] (Lab) [address], [place], [address], 10/08/2024 23:55:14 10/04/19 25 10/04/2024 CBC W/DIF F HGB 13.1 g/dL (based on docume nted legal sex) 11.6-1 5.4 Not Available [facility] (Lab) [address], [place], [address], 10/08/2024 23:55:14 10/04/19 25 10/04/2024 CBC W/DIF F HCT 37.5 % (based on docume nted legal sex) 34.0-4 5.0 Not Available [facility] (Lab) [address], [place], [address], 10/08/2024 23:55:14 10/04/19 25 10/04/2024 CBC W/DIF F MCV 88.0 fL 80.0-9 9.0 Not Available [facility] (Lab) [address], [place], [address], 10/08/2024 23:55:14 10/04/19 25 10/04/2024 CBC W/DIF F MCH 30.8 pg 27.0-3 4.0 Not Available [facility] (Lab) [address], [place], [address], 10/08/2024 23:55:14 10/04/19 25 10/04/2024 CBC W/DIF F MCHC 34.9 g/dL 32.0-3 5.5 Not Available [facility] (Lab) [address] [place], [address], 10/08/2024 23:55:14 10/04/19 25 10/04/2024 CBC W/DIF F RDW 13.1 % 11.0-1 5.0 Not Available [facility] (Lab) [address], [place], [address], 10/08/2024 23:55:14 10/04/19 25 10/04/2024 CBC W/DIF F plt 242 10'3/ uL 150-40 0 Not Available [facility] (Lab) [address], [place], [address], 10/08/2024 23:55:14 10/04/19 25 10/04/2024 CBC W/DIF F MPV 10.4 fL 8.8-12 .1 Not Available [facility] (Lab) [address], [place], [address], 10/08/2024 23:55:14 10/04/19 25 10/04/2024 CBC W/DIF F neutrophils 75.0 % 34.0-7 3.0 high Not Available [facility] (Lab) [address], [place], [address], 10/08/2024 23:55:14 10/04/19 25 10/04/2024 CBC W/DIF F lymphocytes 16.4 % 15.0-5 0.0 Not Available [facility] (Lab) [address], [place], [address], 10/08/2024 23:55:14 10/04/19 25 10/04/2024 CBC W/DIF F monocytes 6.1 % 1.0-15 .0 Not Available [facility] (Lab) [address], [place], [address], 10/08/2024 23:55:14 10/04/19 25 10/04/2024 CBC W/DIF F eosinophils 1.7 % 0.0-8. 0 Not Available [facility] (Lab) [address], [place], [address], 10/08/2024 23:55:14 10/04/19 25 10/04/2024 CBC W/DIF F basophils 0.4 % 0.0-2. 0 Not Available [facility] (Lab) [address], [place], [address], 10/08/2024 23:55:14 10/04/1910/04/2024 CBC W/DIF F immature granulocytes 0.4 % no define d refere nce range Immat ure Granu locyt es (IG) repre sents autom ated enume ratio n of Metam yeloc ytes, Myelo cytes and Promy elocy liyah when IG is < 5%. Blast s are not inclu ded in IG and repor benson separ ately if prese nt. Not Available [facility] (Lab) [address], [place], [address], 10/08/2024 23:55:14 10/04/19 25 10/04/2024 CBC W/DIF F absolute neutrophils 6.7 10'3/ uL 1.5-8. 0 Not Available [facility] (Lab) [address], [place], [address], 10/08/2024 23:55:14 10/04/19 25 10/04/2024 CBC W/DIF F absolute lymphocytes 1.5 10'3/ uL 1.0-4. 0 Not Available [facility] (Lab) [address], [place], [address], 10/08/2024 23:55:14 10/04/19 25 10/04/2024 CBC W/DIF F absolute monocytes 0.6 10'3/ uL 0.2-1. 0 Not Available [facility] (Lab) [address], [place], [address], 10/08/2024 23:55:14 10/04/19 25 10/04/2024 CBC W/DIF F absolute eosinophils 0.2 10'3/ uL 0.0-0. 6 Not Available [facility] (Lab) [address], [place], [address], 10/08/2024 23:55:14 10/04/19 25 10/04/2024 CBC W/DIF F absolute basophils 0.0 10'3/ uL 0.0-0. 3 Not Available [facility] (Lab) [address], [place], [address], 10/08/2024 23:55:14 10/04/1910/04/2024 CBC W/DIF F absolute immature granulocytes 0.0 10'3/ uL 0.00-0 .10 Refer ence range s for nonbi nary/ inter sex or unspe cifie d gende r patie nts have not been estab lishe d. Pleas e refer to the follo wing table for range s estab lishe d for cisge nder patie nts and evalu ate in the clini funmi kathie xt of the indiv idual patie nt: https :[email or web address] kemp book. nm.or g/gen derx Not Available [facility] (Lab) [address], [place], [address], 10/08/2024 23:55:14 10/04/1910/04/2024 HIV 1/2 ANTIG EN/AN TIBOD Y, REFLE X CONFI RMATI ON HIV antigen/anti body Nonrea ctive nonrea ctive HIV-1 antig en and HIV-1 /HIV- 2 antib odies were not detec benson. No labor atory evide nce of HIV infec tion. Not Available [facility] (Lab) [address], [place], [address], 10/08/2024 23:55:15 10/04/1910/04/2024 HEPAT ITIS B SURFA CE ANTIG EN hepatitis B surface antigen Non-re active non-re active This assay was perfo rmed using [employer] ratio n reage nts and test kits. Value s obtai ventura with other assay metho ds or kits canno t be used inter hickman eably . Not Available [facility] (Lab) [address], [place], [address], 10/08/2024 23:55:15 10/04/1910/04/2024 HEPAT ITIS C ANTIB PHILIPPE SCREE N, REFLE X TO CONFI RMATI ON hepatitis C antibody Non-re active non-re active Antib odies to HCV Not Detec benson, does not exclu de the possi bilit y of expos ure to HCV. Not Available [facility] (Lab) [address], [place], [address], 10/08/2024 23:55:15 10/04/19 25 10/04/2024 HEMOG LOBIN A1C hemoglobin A1C 5.0 % 4.0-5. 6 The Ameri can Diabe liyah Assoc iatio n recom mends that a prima ry goal of thera py shoul d be a HBA1C of < 7% and that physi cians shoul d reeva luate the treat ment regim en in patie nts with HBA1C value s consi stent ly > 8%. <5.7% Flory l 5.7 - 6.4% Incre ased risk for diabe liyah >=6.5 % Diagn ostic of diabe liyah <7.0% Goal of thera py >8.0% Actio n sugge sted Not Available [facility] (Lab) [address], [place], [address], 10/08/2024 23:55:16 10/04/19 25 10/04/2024 RUBEL LA IGG ANTIB PHILIPPE, QUANT rubella antibodies, IgG Reacti ve reacti ve Not Available [facility] (Lab) [address], [place], [address], 10/08/2024 23:55:16 10/04/19 25 10/04/2024 RUBEL LA IGG ANTIB PHILIPPE, QUANT rubella antibodies, IgG quant 55.4 IU/mL >=10 Non-r eacti ve (Non- Immun e) <10 IU/mL React nguyen (Immu ne) > or = 10 IU/mL Not Available [facility] (Lab) [address], [place], [address], 10/08/2024 23:55:16 02/19/10/04/2024 TYPE/ RH/SC REEN ABO/Rh type A POS Not Available [facility] (Lab) [address], [place], [address], 10/08/2024 23:55:16 10/04/1910/04/2024 TYPE/ RH/SC REEN antibody screen NEG Not Available [facility] (Lab) [address] [place], [address], 10/08/2024 23:55:16 10/04/1910/04/2024 TYPE/ RH/SC REEN exp date 2024 23:59 Not Available [facility] (Lab) [address], [place], [address], 10/08/2024 23:55:16 10/04/19 25 10/04/2024 RPR SCREE N, REFLE X TITER /CONF IRMAT ION RPR screen Nonrea ctive nonrea ctive Not Available [facility] (Lab) [address], [place], [address], 10/08/2024 23:55:16 10/04/1910/04/2024 CULTU RE: URINE result report SEE RESULT S BELOW Test: Cultu re: Urine Speci men Sourc e: Urine - Clean Catch Speci men Type: Urine Speci men Date: 20247 Resul t Date: 2024 Resul t Statu s: Final resul t Abnor mal: No Resul ting Lab: [facility] [address] [facility] [address] Tel: CULTU RE ----- ----- ----- --- No growt h in 1 day (dete ction level of 10,00 0 colon ies / ml.) Not Available [facility] (Lab) [address] [place], [address], 10/08/2024 23:55:27 10/04/19 25 10/04/2024 drug scree n, urine Amphetamines : negati ve Not Available [facility] [address], [place], [address], 10/04/2024 17:39:59 10/04/19 25 10/04/2024 drug scree n, urine Cannabinoids : negati ve Not Available [facility] [address], [place], [address], 10/04/2024 17:39:59 10/04/19 25 10/04/2024 drug scree n, urine Cocaine: negati ve Not Available [facility] [address], [place], [address], 10/04/2024 17:39:59 10/04/19 25 10/04/2024 drug scree n, urine Opiates: negati ve Not Available [facility] [address], [place], [address], 10/04/2024 17:39:59 10/04/19 25 10/04/2024 drug scree n, urine Phenocyclidi ne: negati ve Not Available [facility] [address], [place], [address], 10/04/2024 17:39:59 10/04/19 25 10/04/2024 drug scree n, urine Barbiturates : negati ve Not Available [facility] [address], [place], [address], 10/04/2024 17:39:59 10/04/19 25 10/04/2024 drug scree n, urine Benzodiazepi ynes: negati ve Not Available [facility] [address], [place], [address], 10/04/2024 17:39:59 10/04/19 25 10/04/2024 drug scree n, urine Ethanol: negati ve Not Available [facility] [address], [place], [address], 10/04/2024 17:39:59 10/04/19 25 10/04/2024 drug scree n, urine Hallucinogen s: negati ve Not Available [facility] [address], [place], [address], 10/04/2024 17:39:59 10/04/19 25 10/04/2024 drug scree n, urine Inhalants: negati ve Not Available [facility] [address], [place], [address], 10/04/2024 17:39:59 10/04/19 25 10/04/2024 drug scree n, urine Anabolic Steroids: negati ve Not Available [facility] [address], [place], [address], 10/04/2024 17:39:59 10/04/19 25 10/04/2024 drug scree n, urine Other: negati ve Not Available [facility] [address], [place], [address], 10/04/2024 17:39:59 09/06/19 25 09/06/2024 US, obste tric, 1st trime ster No observ ation record ed. [email or web address] [address], [place], [address], 09/06/2024 23:07:39 10/04/19 25 10/04/2024 US, obste tric, nucha l trans lucen cy No observ ation record ed. [email or web address] [facility] [address], [place], [address], 10/04/2024 18:16:55 10/04/19 25 10/04/2024 US, obste tric, nucha l trans lucen cy No observ ation record ed. [email or web address] [address], [place], [address], 10/04/2024 17:18:15 Result Notes None recorded. Problems Name Problem SNOMED Code Status Onset Date Resolution Date Notes Provider Name and Address Organization Details Recorded Time Pregnanc y 07139875 Completed 202101/29/2023 Rochelle Quintero [facility], [facility] 5 17:35:05 Anxiety 97956258 Completed not treated, focus is on blood draws. Cassandra Whitman [facility], [facility] 3 15:31:31 COVID-19 380800355 Active + early pregnanc y, bASA daily Marci Don CNM [address], [place], [address], [facility] 5 17:53:09 Pregnanc y 21297448 Active 2024 Rochelle Quintero [facility], [facility] 5 17:35:05 COVID-19 071706030 Active + early pregnanc y, bASA daily Marci Don CNM [address], [place], [address], [facility] 5 17:53:09 Asthma 253117233 Active Marci Don CNM [address], [place], [address], [facility] 5 17:54:06 Palpatio n Active 72HR holter monitor - ordered faxed 10/27 Dasia Knapp [facility], [facility] 5 10:00:53 Palpatio n Active 72HR holter monitor - ordered faxed 10/27 Dasia Knapp [facility], [facility] 5 10:00:53 Problem Notes None recorded. Procedures Surgical History Date Name Laterality Status Provider Name and Address Organization Details Recorded Time 5 Date of Last Pap Smear completed Rochelle Quintero [facility] 09/06/2024 14:49:57 3 extraction of wisdom tooth completed Rochelle Quintero [facility] 09/21/2022 16:19:49 Imaging Results Imaging Date Name Status LastModified by Organization Details LastModified Time 09/06/2024 US, obstetric, 1st trimester completed [email or web address] [address], [place], [address], 09/06/2024 23:07:39 10/04/2024 US, obstetric, nuchal translucency completed [email or web address], [place], [address], 10/04/2024 18:16:55 10/04/2024 US, obstetric, nuchal translucency completed [email or web address] [address], [place], [address], 10/04/2024 17:18:15 Procedure Notes None recorded. Medical Equipment None Reported. Allergies No known drug allergies Medications Name Sig Start Date Stop Date Status Note LastModified by Organization Details LastModified Time fluconazole 150 mg tablet TAKE 1 TABLET BY MOUTH NOW. REPEAT IN 72 HOURS 07/03 completed Not Available Not Available Not Available metronidazo le 500 mg tablet TAKE 1 TABLET BY MOUTH EVERY 12 HOURS 08/18 completed Not Available Not Available Not Available nystatin-tr iamcinolone 100,000 unit/gram-0 .1 % topical ointment APPLY TOPICALLY TO THE AFFECTED AREA TWICE DAILY 08/18 completed Not Available Not Available Not Available oseltamivir 75 mg capsule TAKE 1 CAPSULE BY MOUTH EVERY 12 HOURS FOR 5 DAYS 09/21 completed Not Available Not Available Not Available ibuprofen 600 mg tablet TAKE 1 TABLET BY MOUTH EVERY 6 HOURS NEEDED FOR CRAMPING 02/03 completed Not Available Not Available Not Available ondansetron 4 mg disintegrat ing tablet DISSOLVE 1 TABLET ON THE TONGUE EVERY 8 HOURS NEEDED active Not Available Not Available No t Available Zyrtec active Not Available Not Availa ble Not Available Vitamin active Not Available Not Available Not Available Vitals Date Recorded Body height Body mass index (BMI) Body weight Systolic blood pressure Diastolic blood pressure Provider Name and Address Organization Details Last Updated DateTime 09/06/2024 159.39 cm 31.4 kg/m2 63423.26 g 120 mm[Hg] 87 mm[Hg] Rochelle Quintero [facility] 5 14:49:34 Date Recorded Body height Body mass index (BMI) Body weight Systolic blood pressure Diastolic blood pressure Provider Name and Address Organization Details Last Updated DateTime 10/04/2024 159.39 cm 31.8 kg/m2 43882.44 g 123 mm[Hg] 61 mm[Hg] Rochelle Quintero [facility] 5 17:33:56 Social History Question Answer Notes LastModified by Organizat ion Details LastModified Time Tobacco Smoking Status Never Smoker [facility] 08/18/2023 16:17:07 Do You Have An Advance Directive? No [email or web address] Information not available 06/17/2022 What Is Your Level Of Alcohol Consumption? None [email or web address] Information not available 10/21/2022 If You Are , What Was Your Level Of Alcohol Consumption Prior To ? Occasional [email or web address] Information not available 08/18/2023 How Many Years Have You Consumed Alcohol? 8 [email or web address] Information not available 06/17/2022 Are You Blind Or Do You Have Difficulty Seeing? No [email or web address] Information not available 06/17/2022 What Is Your Level Of Caffeine Consumption? Occasional [email or web address] Information not available 06/17/2022 In The 14 Days Before Symptom Onset, Have You Had Close Contact With A Laboratory-confir med COVID-19 While That Case Was Ill? No [email or web address] Information not available 06/17/2022 In The 14 Days Before Symptom Onset, Have You Had Close Contact With A Person Who Is Under Investigation For COVID-19 While That Person Was Ill? No [email or web address] Information not available 06/17/2022 Have You Been To An Area Known To Be High Risk For COVID-19? No [email or web address] Information not available 06/17/2022 Are You Deaf Or Do You Have Serious Difficulty Hearing? No [email or web address] Information not available 06/17/2022 What Type Of Diet Are You Following? REGULAR Information not available 06/17/2022 Do You Or Have You Ever Used E-cigarettes Or Vape? Former User Of Electronic Cigarettes [email or web address] Information not available 08/18/2023 What Is The Highest Grade Or Level Of School You Have Completed Or The Highest Degree You Have Received? 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 No Information not available 06/17/2022 Do You Use Protection During Sex? No [email or web address] Information not available 06/17/2022 Do You Use Your Seat Belt Or Car Seat Routinely? Yes [email or web address] Information not available 06/17/2022 Do You Have Smoke And Carbon Monoxide Detectors In Your Home? No [email or web address] Information not available 06/17/2022 How Much Tobacco Do You Smoke? No [email or web address] Information not available 06/17/2022 Do You Feel Stressed (tense, Restless, Nervous, Or Anxious, Or Unable To Sleep At Night)? [id number] [email or web address] Information not available 06/17/2022 Do You Use Any Illicit Or Recreational Drugs? No [email or web address] Information not available 06/17/2022 Do You Use Sunscreen Routinely? Yes [email or web address] Information not available 06/17/2022 Has Tobacco Cessation Counseling Been Provided? No [email or web address] Information not available 08/18/2023 Have You Used IV Drugs? No [email or web address] Information not available 06/17/2022 Do You Or Have You Ever Used Any Other Forms Of Tobacco Or Nicotine? Yes Information not available 08/18/2023 Sex: Unknown Functional Status Question Answer Note LastModified by Organizat ion Details LastModified Time Do you have difficulty walking or climbing stairs? No [email or web address] Information not available 08/18/2023 Are you able to walk? YESWOREST [email or web address] Information not available 06/17/2022 Are you able to care for yourself? Yes Information not available 08/18/2023 Do you have difficulty dressing or bathing? No [email or web address] Information not available 08/18/2023 What is your exercise level? Occasional Information not available 06/17/2022 Mental Status None recorded. Family History Relationship Description Onset Age of this Age Resolved Age Notes LastModified by Organization Details LastModified Time Paternal Uncle Malignant tumor of breast 58 Not available 06/16 16:05:54 Maternal Grandfather Malignant tumor of colon 63 [email or web address] Not available 06/16 16:06:07 Paternal Aunt Malignant tumor of breast 50 [email or web address] Not available 06/17 10:55:35 Father Diabetes mellitus [email or web address] Not available 06/17 10:55:52 Mother Diabetes mellitus pre dm [email or web address] Not available 06/17 10:55:52 Medical History Condition Response Other N Blood Transfusion N Dermatologic Disorders N Gestational Diabetes N Anxiety Disorder N Autoimmune disease N Arthritis N Polyps N Infertility N Acid Reflux (GERD) N Cancer N Varicosities N Stroke N Neurologic/Epilepsy N Fibromyalgia N Headaches N Kidney Disease N Heart Problems N Kidney or Bladder Problems N Eating Disorder N Art (IVF or FET) N Hepatitis/Liver Disease N No Past Medical History N Urinary Tract Infection N Asthma Y Trauma/Violence N Thrombophilias N Allergies (Food, seasonal, environmental ) Y Breast Cancer N Drug/Latex Allergies/Reactions N Lung Disease N Defects or Inherited Disease N Breast Problem N Hematologic disorders N Anesthesia Complications N History of STI N Deep Vein Thrombosis N Polycystic ovary syndrome N History of abnormal pap N Endometriosis N High Cholesterol N Thyroid Problems N GI Problems N Anemia N Psychiatric Illness N Ovarian Cancer N Diabetes N Pulmonary (TB, Asthma) Y Eczema N Abuse/Domestic Violence N Depression/ depression N Heart Disease N Pre-Eclampsia N Hypertension N Osteoporosis N Gynecological History Statement/Question Response Abnormal Pap N Date of Last Mammogram Date of LMP 07/10/2024 N On BCP's at Conception? N STIs/STDs N Was last menstrual period normal Y HPV Vaccine N Duration of Flow (days) 5 Current Control Method Frequency of Cycle (Q days) 28 Sexually Active? Y Date of DEXA bone scan Age of first menstrual cycle 15 Date of Last Pap Smear 09/06/2024 Sexual Problems? N LMP Approximate Desired Control Method Condoms N 2018 Obstetrics History GPAL:G 2 P 1 0 0 1 Type Value Full Term 1 Living 1 Total 2 Past Encounters Encounter ID Performer Location Encounter Start Date Encounter Closed Date Diagnosis/Indication Diagnosis SNOMED-CT Code Diagnosis ICD10 Code Diagnosis Note [id number] [facility] [address],[place] [address] 06/17/2022 10:07:17 06/17/2022 10:36:37 screening 630960069 Z36.87 [id number] [facility] [address],[place] [address] 06/17/2022 10:07:52 06/17/2022 12:17:28 test positive 575256734 Z32.01 Gynecologi c examination 04716914 Z01.419 Amenorrhea 60777455 N91. 2 screening 2437 38290 Z36.89 [id number] Dahiana Oglesby [facility] [address],[place] [address] 07/03/2022 12:28:40 07/03/2022 13:36:58 screening 681146076 Z36.82 [id number] Mario Hamilton MD [facility] [address],[place] [address] 07/03/2022 14:00:17 07/03/2022 15:06:00 Routine care 425412850 Z34.01 [id number] Mario Hamilton MD [facility] [address],[place] [address] 07/27/2022 10:57:55 07/27/2022 11:48:53 screening 188879296 Z36.0 Routine an tenatal care 467872812 Z34.[id number] [facility] [address],[place] [address] 08/24/2022 16:32:17 08/24/2022 17:45:38 screening for malformation 430299224 Z36.3 [id number] Mario Hamilton MD [facility] [address],[place] [address] 08/24/2022 16:32:37 08/24/2022 18:28:23 Routine care 890240400 Z34.01 [id number] [facility] [address],[place] [address] 09/21/2022 16:05:52 09/21/2022 17:37:38 Routine care 719180383 Z34.92 [id number] [facility] [address],[place] [address] 10/21/2022 15:55:45 10/21/2022 16:27:22 Routine care 297826315 Z34.93 [id number] Dahiana Oglesby [facility] [address],[place] [address] 11/04/2022 16:30:18 11/04/2022 17:25:33 Uterine size for dates discrepancy 595430548 O26.849 Z3A.30 [id number] [facility] [address],[place] [address] 11/04/2022 16:30:41 11/04/2022 18:05:05 Routine care 944878984 Z34.93 [id number] [facility] [address],[place] [address] 11/18/2022 16:31:20 11/18/2022 17:25:56 Routine care 163419002 Z34.93 [id number] Elizabeth Martinez [facility] [address],[place] [address] 12/01/2022 16:29:05 12/01/2022 17:06:37 Uterine size for dates discrepancy 488030590 O26.843 Z3A.34 [id number] [facility] [address],[place] [address] 12/01/2022 16:29:39 12/02/2022 12:49:50 Routine care 273707207 Z34.92 [id number] Shira Oneill [facility] [address],[place] [address] 12/14/2022 17:04:53 12/14/2022 17:52:30 Routine care 246846086 Z34.92 [id number] [facility] [address],[place] [address] 12/23/2022 17:43:48 12/24/2022 10:57:36 Routine care 533644922 Z34.93 [id number] Maryana Zavaleta MD [facility] [address],[place] [address] 2022 10:33:49 12/29/2022 15:14:07 Routine care 782515938 Z34.03 [id number] [facility] [address],[place] [address] 2022 10:34:12 2022 11:48:47 Uterine size for dates discrepancy 499665441 O26.849 Z3A.38 [id number] Rochelle Dolantz [facility] [address],[place] [address] 02/03/2023 16:43:30 02/04/2023 09:34:21 Vaginitis 19875685 N76.0 care 48019664 8 Z39.2 [id number] [facility] [address],[place] [address] 08/18/2023 16:14:42 08/18/2023 17:29:06 Gynecologic examination 18554227 Z11.3 anxiety and depression -continue counseling call if needs appt otherwise f/u one year wwe [id number] Marci Don CNM [facility] [address],[place] [address] 09/06/2024 14:02:06 09/06/2024 15:10:54 Gynecologic examination 96415070 Z11.3 anxiety and depression -continue counseling call if needs appt otherwise f/u one year wwe [id number] Elizabeth Martinez [facility] [address],[place] [address] 09/06/2024 14:03:23 09/06/2024 14:24:15 [id number] Patricia Thomaseusebio [facility] [address],[place] [address] 10/04/2024 16:27:53 10/04/2024 17:06:58 screening 850291487 Z36.82 Z3A.12 [id number] Marci Don [facility] [address],[place] [address] 10/04/2024 16:28:09 10/04/2024 17:55:58 Routine care 850831579 Z34.93 Gestation period, 12 weeks 34180914 Z3A.12 screening 2437 23886 Z36.89 Health Concerns Section Related Observation LastModified by Organization Detai ls LastModified Time None Recorded Concern Status LastModified by Organization Details LastModified Time None Recorded Advance Directives Directive N: Payers Encounter Date Sequence Insurance Name Policy Number Policy Crowley Covered Member ID Crowley Member ID Guarantor Name 09/06/2024 2 [place] [id number] Cuco Moses [id number] Celena Pfaffenback 09/06/2024 1 [place] [id number] Cuco Clairen [id number] Celena Pfaffenback 10/04/2024 1 [place] [id number] Cuco Clairen [id number] Celena Pfaffenback 10/04/2024 1 [place] [id number] Cuco Moses [id number] Celena Pfaffenback Notes Date Note Type Note Provider Name and Address Organization Details Recorded Time 09/06/2024 text/html Annual GYNReport ed bypatient.History: no gynecologic complaints; actively trying to conceive Menstrual cycle:Normal menses Urinary symptoms:No hematuria; No incontinence Vulva:No genital lesion Vagina:Normal vaginal discharge Breast:No breast pain; No breast lump; No nipple discharge Sexual complaints:No sexual complaints; No pain during intercourse; Normal libido Menopausal Symptoms:No menopausal symptoms; Normal vaginal lubrication Psychological symptoms:No depression; No anxiety; No PMDD Preventive measures:Encourage self breast examination; Encourage regular exercise; Encourage no tobacco useNotes:+UPT, covid right after, feeling better now mostly nausea Marci Don, JAVON [address], [place], [address], [facility] 09/06/2024 15:09:26 OBGyn Episode Ob Episode Information Episode Created Date Number of Fetuses Patient Bloodtype Patient rh Status Prepregnancy Weight lbs Domestic Partner Domestic Partner Phone Father Name Running Instructor Status 07/03/20 22 1 A Positive 146 CLOSED Fetus Data First Name Last Name Admitted to NICU Weight (g) Sex Living Outcome Pediatric Complications Fetus ID Race Codes Race Delivery Type 3430.28 95 M true Full Term terminal [facility] [id number] Vaginal Delivery Problems Problem Notes failed 1 hr3/31 possible col d sores - to discuss OB if b/w needed for HSV pt denies h/o oral or vaginal outbreak Problem Name Start Date End Date Resolution Snomed Code Not e Anxiety [id number] not treate d, focus is on blood draws. Zach Calculation Initial Zach Date Initial Exam Date Initial Exam Provider Initial Ultrasound Date Last Menstrual Period Date Ultra Sound Weeks Gestation 01/10/2023 07/03/2022 06/17/2022 04/04/2022 10 Eighteen To Twenty Week Zach Update Ultra Sound Date Fundal Height At Umbil Quickening Date Ultra Sound Latest Weeks Gestation Final Zach Confirmed By Final Zach Confirmed Date Final Zach Date Ultra Sound Latest Days Gestation 0 [email or web address] 07/03/2022 01/11/20 23 0 Pre- Flowsheet Flowsheet Date 07/03/2022 Hamilton Score Blood Edema Fundus Height Fundus Units Glucose Ketones Leukocytes Nitrite Labor Signs Protein Cervic Dilation Cervic Effacement Cervic Station 12 Type Weight in lbs Pre/Post Dialysis Refused Weight 146.930955127151 BP Diastolic BP Location Tested BP Systolic BP Type 66 R arm 103 sitting Fetus Heart Rate Present A 167 Fetus Movement Comments This patient is a 31-year-ol d 1 at 12 weeks gestation who presents for initial care. She is dated by a 10 week ultrasound. She has no complaints. She is on vaccinated. She was given flu vaccine recommendations and Tdap recommendations along with COVID vaccine recommendations. She has an unremarkable medical, surgical, obstetric history. She will begin routine care. Flowsheet Date 07/27/2022 Hamilton Score Blood Edema Fundus Height Fundus Units Glucose Ketones Leukocytes Nitrite Labor Signs Protein Cervic Dilation Cervic Effacement Cervic Station 16 Type Weight in lbs Pre/Post Dialysis Refused Weight 149.898715475335 BP Diastolic BP Location Tested BP Systolic BP Type 68 R arm 105 sitting Fetus Heart Rate Present A 147 Fetus Movement Comments Nausea, improving, doing wel l, no other complaints. Alpha fetoprotein today. Anxiety stable Flowsheet Date 08/24/2022 Hamilton Score Blood Edema Fundus Height Fundus Units Glucose Ketones Leukocytes Nitrite Labor Signs Protein Cervic Dilation Cervic Effacement Cervic Station Type Weight in lbs Pre/Post Dialysis Refused BP Diastolic BP Location Tested BP Systolic BP Type Fetus Heart Rate Present Fetus Movement Comments Flowsheet Date 08/24/2022 Hamilton Score Blood Edema Fundus Height Fundus Units Glucose Ketones Leukocytes Nitrite Labor Signs Protein Cervic Dilation Cervic Effacement Cervic Station 20 Type Weight in lbs Pre/Post Dialysis Refused Weight 156.779898929608 BP Diastolic BP Location Tested BP Systolic BP Type 67 R arm 106 sitting Fetus Heart Rate Present A 156 Fetus Movement Comments worsening anxiety, excessive worry over small matters, some hip and low back discomfort. Given recommendations. Declined medications for anxiety but some was given precautions on excessive anxiety and the effects of treatment. Flowsheet Date 09/21/2022 Hamilton Score Blood Edema Fundus Height Fundus Units Glucose Ketones Leukocytes Nitrite Labor Signs Protein Cervic Dilation Cervic Effacement Cervic Station neg none 25 none trace Type Weight in lbs Pre/Post Dialysis Refused Weight 166.777941648984 BP Diastolic BP Location Tested BP Systolic BP Type 72 111 Fetus Heart Rate Present A 144 Fetus Movement A Yes Comments Doing well. Having a boy! En couraged to start thinking about labor and options. Also look into pedi. GTT at next visit. Flowsheet Date 10/21/2022 Hamilton Score Blood Edema Fundus Height Fundus Units Glucose Ketones Leukocytes Nitrite Labor Signs Protein Cervic Dilation Cervic Effacement Cervic Station neg none 29 none trace Type Weight in lbs Pre/Post Dialysis Refused Weight 176.329942837299 BP Diastolic BP Location Tested BP Systolic BP Type 70 119 Fetus Heart Rate Present A 140 Present Fetus Movement A Yes Comments patient is having some issue s with constipation, back pain, swelling and nausea. disc colace/miralax for constipation, seeing chiropractor for back pain, ok for tdap, start every 2 week visits, precautions reviewed Flowsheet Date 11/04/2022 Hamilton Score Blood Edema Fundus Height Fundus Units Glucose Ketones Leukocytes Nitrite Labor Signs Protein Cervic Dilation Cervic Effacement Cervic Station Type Weight in lbs Pre/Post Dialysis Refused BP Diastolic BP Location Tested BP Systolic BP Type Fetus Heart Rate Present Fetus Movement Comments Flowsheet Date 11/04/2022 Hamilton Score Blood Edema Fundus Height Fundus Units Glucose Ketones Leukocytes Nitrite Labor Signs Protein Cervic Dilation Cervic Effacement Cervic Station neg trace none trace Type Weight in lbs Pre/Post Dialysis Refused Weight 175.803332775953 BP Diastolic BP Location Tested BP Systolic BP Type 80 117 Fetus Heart Rate Present Fetus Movement A Yes Comments patient is having some back pain, discharge, swelling, nausea and heart burn. reviewed precautions efw 88%, baby shower planned for 34 weeks, plan rpt growth in 4 discussed LGA, bpp 8/8, ok for tens unit on shoulder Flowsheet Date 11/18/2022 Hamilton Score Blood Edema Fundus Height Fundus Units Glucose Ketones Leukocytes Nitrite Labor Signs Protein Cervic Dilation Cervic Effacement Cervic Station neg none 35 none trace Type Weight in lbs Pre/Post Dialysis Refused Weight 179.349892651014 BP Diastolic BP Location Tested BP Systolic BP Type 69 108 Fetus Heart Rate Present A 150 Present Fetus Movement A Yes Comments patient states that had feve r blister on lip. thought maybe, but it was a pimple, resolved overnight with pimple patch, burned when eating apple so was initially concerned. no hx hsv, disc things to monitor, PTL precautions, call for preadmit Flowsheet Date 12/01/2022 Hamilton Score Blood Edema Fundus Height Fundus Units Glucose Ketones Leukocytes Nitrite Labor Signs Protein Cervic Dilation Cervic Effacement Cervic Station Type Weight in lbs Pre/Post Dialysis Refused BP Diastolic BP Location Tested BP Systolic BP Type Fetus Heart Rate Present Fetus Movement Comments Flowsheet Date 12/01/2022 Hamilton Score Blood Edema Fundus Height Fundus Units Glucose Ketones Leukocytes Nitrite Labor Signs Protein Cervic Dilation Cervic Effacement Cervic Station neg trace none trace Type Weight in lbs Pre/Post Dialysis Refused Weight 184.769194943567 BP Diastolic BP Location Tested BP Systolic BP Type 78 130 Fetus Heart Rate Present Fetus Movement A Yes Comments Doing well. No contractions. Pre admit done. Encouraged tdap. Growth ultrasound today. Flowsheet Date 12/14/2022 Hamilton Score Blood Edema Fundus Height Fundus Units Glucose Ketones Leukocytes Nitrite Labor Signs Protein Cervic Dilation Cervic Effacement Cervic Station neg trace 36 none trace Type Weight in lbs Pre/Post Dialysis Refused Weight 187.923655537969 BP Diastolic BP Location Tested BP Systolic BP Type 82 130 Fetus Heart Rate Present A 131 Fetus Movement A Yes Comments Doing well. No contractions. Labor precautions discussed. GBS collected Flowsheet Date 12/23/2022 Hamilton Score Blood Edema Fundus Height Fundus Units Glucose Ketones Leukocytes Nitrite Labor Signs Protein Cervic Dilation Cervic Effacement Cervic Station neg trace 39 none trace Type Weight in lbs Pre/Post Dialysis Refused Weight 191.968362638512 BP Diastolic BP Location Tested BP Systolic BP Type 65 112 Fetus Heart Rate Present A 136 Present Fetus Movement A Yes Comments patient is having trouble sl eeping, BH contractions, and pressure. rec unisom. pt doesnt like taking additional meds, rec warm bath, essential oils. discussed IOL, will plan growth us and then discuss. discussed error of US and risks of IOL. nothing scheduled. precautions and labor reviewed Flowsheet Date 2022 Hamilton Score Blood Edema Fundus Height Fundus Units Glucose Ketones Leukocytes Nitrite Labor Signs Protein Cervic Dilation Cervic Effacement Cervic Station neg trace none trace 2cm 70% Type Weight in lbs Pre/Post Dialysis Refused Weight 192.213968125195 BP Diastolic BP Location Tested BP Systolic BP Type 78 121 Fetus Heart Rate Present A 130 Fetus Movement A Yes Comments Doing fine, just uncomfortab le. Interested in 39w IOL> US today 55%, symmetric. GBS neg. SP to schedule IOL. Labor precautions given. Flowsheet Date 2022 Hamilton Score Blood Edema Fundus Height Fundus Units Glucose Ketones Leukocytes Nitrite Labor Signs Protein Cervic Dilation Cervic Effacement Cervic Station Type Weight in lbs Pre/Post Dialysis Refused BP Diastolic BP Location Tested BP Systolic BP Type Fetus Heart Rate Present Fetus Movement Comments Menstrual History Last Menstrual Date Menses Monthly On Bcp Conception Prior Menses Frequency Hcg Plus Date Menarche Onset Age 0804/04/2022 Genetic Screening And Infection History Question Response Note Mental Retardation/Autism false Patient's Age Will Be 35 Years Or Older At Estim ated Date of Delivery false Thalassemia (French, Albanian, Mediterranean, Or Background): MCV < 80 false Neural Tube Defect (Meningomyelocele, Spina Bifi da, Or Anencephaly) false Congenital Heart Defect false Down Syndrome false Saad-Sachs (eg, Alevism, Cajun, Georgian-[place]) f alse Divya Disease false Sickle Cell Disease Or Trait () false Hemophilia Or Other Blood Disorders false Muscular Dystrophy false Cystic Fibrosis false Hamlet's Chorea false Intellectual Disability/Autism false If Yes, Was Person Tested For Fragile X? false Other Inherited Genetic Or Chromosomal Disorder false Maternal Metabolic Disorder (eg, Type 1 Diabetes , PKU) false Patient Or Baby's Father Had A Child With Defects Not Listed Above false Recurrent Loss, Or A Stillbirth false Medications (including Suppl ements, Vitamins, Herbs, OTC Drugs), Illicit/Recreational Drugs, Alcohol false If Yes, Agent(s) And Strength/Dosage false Any Other Genetic History false Live With Someone With TB Or Exposed To TB false Patient Or Partner Has History Of Genital Herpes false Rash Or Viral Illness Since Last Menstrual Perio d false History Of STD, Gonorrhea, Chlamydia, HPV, Syphi lis false Other Infection History false History of HIV false History of Hepatitis false Prior GBS-infected child false Hemoglobinopathy Or Carrier false Other Structural Defect false Recent Travel History Outside of Country false Delivery Information Delivery Date Delivery Type Labor Anesthesia Weeks Gestation Incision Type Labor Labor Length Hrs Delivered By Post Complications Tubal Sterilization Discharge Date Comments 3 Induce d Regional-Ep idural 39.3 false Marci Don CNRadha Discharge Information Feeding Method Contraceptive Method Maternal HG B and HCT Levels Ob Episode Information Episode Created Date Number of Fetuses Patient Bloodtype Patient rh Status Prepregnancy Weight lbs Domestic Partner Domestic Partner Phone Father Name Running Instructor Status 10/04/19 25 1 176 OPEN Fetus Data First Name Last Name Admitted to NICU Weight (g) Sex Living Outcome Pediatric Complications Fetus ID Race Codes Race Delivery Type [id number] Problems Problem Notes Problem Name Start Date End Date Resolution Snomed Code Not e COVID-19 [id number] + early pr egnancy, bASA daily Palpation [id number] 72HR divya r monitor - ordered faxed 10/27 Asthma [id number] Zach Calculation Initial Zach Date Initial Exam Date Initial Exam Provider Initial Ultrasound Date Last Menstrual Period Date Ultra Sound Weeks Gestation 04/16/2025 09/06/2024 Marci Don 09/06/2024 07/10/2024 8 Eighteen To Twenty Week Zach Update Ultra Sound Date Fundal Height At Umbil Quickening Date Ultra Sound Latest Weeks Gestation Final Zach Confirmed By Final Zach Confirmed Date Final Zach Date Ultra Sound Latest Days Gestation 0 04/16/20 25 0 Pre-allen Flowsheet Flowsheet Date 10/04/2024 Hamilton Score Blood Edema Fundus Height Fundus Units Glucose Ketones Leukocytes Nitrite Labor Signs Protein Cervic Dilation Cervic Effacement Cervic Station trace none none trace Type Weight in lbs Pre/Post Dialysis Refused Weight 178.243063529854 BP Diastolic BP Location Tested BP Systolic BP Type 61 123 Fetus Heart Rate Present Fetus Movement A No Comments Patient states that is havin g nausea. hx of previous uncomplicated vaginal delivery. covid early plan bASA daily bilateral interdisciplinary professor will look at us next visit plan NIPT today with labs, begin routine care Flowsheet Date 11/01/2024 Hamilton Score Blood Edema Fundus Height Fundus Units Glucose Ketones Leukocytes Nitrite Labor Signs Protein Cervic Dilation Cervic Effacement Cervic Station Type Weight in lbs Pre/Post Dialysis Refused BP Diastolic BP Location Tested BP Systolic BP Type Fetus Heart Rate Present Fetus Movement Comments Flowsheet Date 11/01/2024 Hamilton Score Blood Edema Fundus Height Fundus Units Glucose Ketones Leukocytes Nitrite Labor Signs Protein Cervic Dilation Cervic Effacement Cervic Station Type Weight in lbs Pre/Post Dialysis Refused BP Diastolic BP Location Tested BP Systolic BP Type Fetus Heart Rate Present Fetus Movement Comments Menstrual History Last Menstrual Date Menses Monthly On Bcp Conception Prior Menses Frequency Hcg Plus Date Menarche Onset Age 1107/10/2024 Delivery Information Delivery Date Delivery Type Labor Anesthesia Weeks Gestation Incision Type Labor Labor Length Hrs Delivered By Post Complications Tubal Sterilization Discharge Date Comments Discharge Information Feeding Method Contraceptive Method Maternal HG B and HCT Levels
== END 2024-11-01 14:01 | disposition home or self-care (01) ==
PROVIDERS: Visit Provider Advanced Practice Midwife
DX: R00.2 Palpitations (principal)
CPT/HCPCS: 93242

== ENCOUNTER 2025-04-05 14:55 | Outpatient (RCR) | payer BC, SELFPAY ==
[2025-04-05 15:29] VITALS: BP 121/63; PULSE 89
[2025-04-05 15:42] VITALS: BP 121/63; PULSE 90
== END 2025-04-12 13:39 | disposition other institution (70) ==
LOC: ANHOBOP 14:55
PROVIDERS: Visit Provider Obstetrics & Gynecology
DX: O36.8130 Decreased fetal movements, third trimester, not applicable or unspecified (principal); Z3A.38 38 weeks gestation of pregnancy
CPT/HCPCS: 59025

== ENCOUNTER 2025-04-11 05:52 | Inpatient (IN) | payer BC, SELFPAY ==
[2025-04-11] VITALS (87 sets, daily range): BP systolic 99–132; BP diastolic 49–88; PULSE 44–102; RESP 16–20; TEMP 36.3–36.8; O2SAT 97–100; BMI 38.0
--- NOTE | 2025-04-11 06:32 | LDADM ---
This patient, Celena Foley, was admitted to Labor/Delivery/Recovery 108 on 04/11/25 at 05:52. Plans for labor, pain management and were discussed with patient. Patient/family oriented to hospital policies and general routines including ID bracelet, bed and alarms, visiting hours, pain management, procedures, bathroom and other care routines, personal items, smoking policy, room service/diet and guest tray routines, security routines, and visiting hours. Patient/Family are encouraged to report perceived risks to care and to ask questions if they do not understand what they are told or what they should do. See OBIX for further documentation.
[2025-04-11 06:58] LABS: Hematocrit 38.9 % (37.0-47.0); Hemoglobin 12.9 g/dL (12.0-15.0); Immature Granulocyte Percent A 1.8 % (0-0.5); Lymphocytes Absolute Auto 2.09 K/mm3 (0.9-3.2); Mean Corpuscular HGB Conc 33.2 g/dl (32-36); Mean Corpuscular Hemoglobin 29.3 pg (26-34); Mean Corpuscular Volume 88.4 fl (80-100); Nucleated Red Blood Cells Absolute Auto 0.000 K/mm3 (0.0-0.012); Nucleated Red Blood Cells Perc 0.0 % (0.0-0.2); Platelet Count Result 165 k/mm3 (150-375); Red Blood Count 4.40 M/mm3 (4.2-5.4); White Blood Count 7.4 K/mm3 (4.5-10.0)
[2025-04-11] MEDS: FAMOTIDINE 20 MG/2 ML VIAL IV PUSH (07:20)
[2025-04-11] MEDS: LACTATED RINGERS 1,000 ML 125 ML IV CONT ×2 (07:24→09:48)
[2025-04-11] MEDS: OXYTOCIN 30 UNITS/NS 500 ML 30 UNITS/500 ML BAG IV CONT (07:25)
--- NOTE | 2025-04-11 07:48 | WPDOBADMIT ---
Obstetrics - Admit Note Admission Note: record reviewed. No pertinent additions to the history and/or any subsequent changes in the physical findings that are not consistent with the expected course of the were found. Additions to the history and/or subsequent changes in the physical findings follow. admit in labor 3-/-2 bulging bag, plan epidural, anticipate vaginal delivery
--- NOTE | 2025-04-11 08:07 | WPDANESEPP ---
Anes - Eval Pre Procedure Procedure: Labor epidural Date/Time: 04/11/25 08:07 Surgeon: Joy Preop Diagnosis: Abdominal pain with contractions Pre Op Diagnosis: IOL Patient Data Age: 34 Gender: F Height: 1.6 m Weight: 97.5 kg Last Vital Signs Pulse 76 04/11/25 08:01 BP 117/58 L 04/11/25 08:01 O2 Del Method Room Air 04/11/25 06:32 Allergies Allergy/AdvReac Type Severity Reaction Status Date / Time No Known Allergies Allergy Verified 03/31/25 12:18 Home Medications ?Medication ?Instructions ?Recorded ?Confirmed ?Type cetirizine 5 mg tablet 5 mg PO DAILY PRN Allergy Symptoms 12/12/22 04/11/25 History prenat.vits,funmi,nda-kdds-soriw 1 tablet PO DAILY 12/12/22 04/11/25 History aspirin 81 mg tablet 81 mg PO DAILY 03/31/25 04/11/25 History famotidine 20 mg tablet (Acid 20 mg PO BID 03/31/25 04/11/25 History Controller) Laboratory Tests 04/11/25 06:31 WBC 7.4 K/mm3 (4.5-10.0) RBC 4.40 M/mm3 (4.2-5.4) Hgb 12.9 g/dL (12.0-15.0) Hct 38.9 % (37.0-47.0) MCV 88.4 fl (80-100) MCH 29.3 pg (26-34) MCHC 33.2 g/dl (32-36) RDW 13.7 % (11.5-14.5) Plt Count 165 k/mm3 (150-375) MPV 10.1 fl (7.4-10.4) Immature Gran % (Auto) 1.8 H % (0-0.5) Neut % (Auto) 62.6 % (45.5-73.1) Lymph % (Auto) 28.3 % (18.3-44.2) Redwood % (Auto) 6.1 % (2.6-8.5) Eos % (Auto) 0.8 % (0-4.4) Baso % (Auto) 0.4 % (0.2-1.2) Lymph # (Auto) 2.09 K/mm3 (0.9-3.2) Redwood # (Auto) 0.5 K/mm3 (0.1-0.6) Eos # (Auto) 0.1 K/mm3 (0-0.3) Baso # (Auto) 0.0 K/mm3 (0.0-0.1) Abs Immat Gran (auto) 0.13 H K/mm3 (0.00-0.031) Absolute Neuts (auto) 4.6 K/mm3 (1.3-6.7) Absolute Nucleated RBC 0.000 K/mm3 (0.0-0.012) Nucleated RBC % 0.0 % (0.0-0.2) Blood Type A Positive Antibody Screen Negative : gestational age HCG: positive Patient hx anesthesia problems: none Family hx anesthesia problems: none Results Review: All pre-operative results and documents have been reviewed as part of the pre-operative evaluation. [facility] Past Medical History Medical History Asthma Obesity and not yet delivered Healthy female adult Surgical History Surgical History No history of previous surgery Family History Family History Mother Pacemaker Father Diabetes mellitus Grandparent Cancer Social History Social History Smoking status: Former smoker Tobacco type: e-cigarettes/vaping Substance use: never Lack of Transportation: No Lack of Food: Never True Current Housing: I Have Housing Concerned About Future Housing: No Difficulty Paying Gas/Electric Bills: No Difficulty Paying for Meds: No Currently Unemployed: No Education: Associate Degree Difficulty w/ Childcare or Family Care: No Spiritual care concerns: No Exam Day of Procedure 04/11/25 08:07 Patient weight: obese Airway: Mallampati scale class II
[2025-04-11 08:09] LABS: Syphilis IgG/IgM Antibody Non-Reactive (Nonreactive)
--- NOTE | 2025-04-11 09:10 | PM.OBPNLAB ---
Pain Control Date/time seen: 04/11/25 09:10 Comments: EMELY /-2 arom moderate fluid, meconium. anticipate vaginal delivery
--- NOTE | 2025-04-11 11:42 | PM.OBPRVD ---
OB - Vaginal Delivery Note Procedure Delivery date: 04/11/25 Induction method: AROM and Per Pitocin Protocol Route of delivery: Laceration Description: None Specimen: No Quantitative Blood Loss (ml): 200 Anesthesia type: Epidural Disposition: Floor Complications: No immediate complications Baby Date of : 04/11/25 Time of : 11:28 Gestational Age by Date: 39 gender: Female presentation: vertex position: Left Occiput Anterior Placenta delivery description: Manual Removal Cord Vessel Description: 3 Vessels
[2025-04-11] MEDS: OXYTOCIN 30 UNITS/NS 500 ML 30 UNITS/500 ML BAG 125 UNITS IV CONT (12:03)
[2025-04-11] MEDS: ceFAZolin 2 GM in SODIUM CHLORIDE 0.9% IV 50 ML 100 ML IVPB (12:25)
[2025-04-11] MEDS: LORATADINE 10 MG TABLET PO (13:25)
[2025-04-11] MEDS: WITCH HAZEL 40 PADS 1 PAD TOPICAL (15:04)
[2025-04-11] MEDS: BENZOCAINE 20% AER SPR (*SP) 56 GM CAN 1 SPRAY TOPICAL (15:04)
[2025-04-11] MEDS: ACETAMINOPHEN 325 MG TABLET 650 MG PO ×2 (15:40→22:57)
[2025-04-11] MEDS: IBUPROFEN 600 MG TABLET PO (19:41)
[2025-04-12] MEDS: IBUPROFEN 600 MG TABLET PO ×2 (02:10→08:12)
[2025-04-12 04:10] VITALS: BP 110/52; PULSE 75; RESP 16; TEMP 36.6; O2SAT 98
[2025-04-12 04:54] LABS: Hematocrit 34.1 % (37.0-47.0); Hemoglobin 11.4 g/dL (12.0-15.0)
[2025-04-12 08:10] VITALS: BP 129/70; PULSE 72; RESP 16; TEMP 36.8; O2SAT 99
[2025-04-12] MEDS: DOCUSATE SODIUM 100 MG CAPSULE PO (08:12)
[2025-04-12] MEDS: MULTIVIT/MIN/PREN/FOL AC/IRON TABLET 1 TAB PO (08:12)
[2025-04-12] MEDS: ACETAMINOPHEN 325 MG TABLET 650 MG PO (08:13)
--- NOTE | 2025-04-12 08:54 | P.PNOB_ITS ---
OB - PN: Subj Subjective Date/time seen: 04/12/25 08:54 Patient comments: no complaints, pain well controlled, incisional pain, tolerating diet and flatus present OB - PN: Obj Data Labs 04/12/25 03:49 Labs: Laboratory Results - last 24 hr 04/12/25 03:49 Hgb 11.4 L Hct 34.1 L OB - PN A/P Plan day: 1 Plan: routine care Comments: No problems, routine care Time Spent With Patient Time: Total time spent is greater than 50% in coordination of care (as documented) at patient's floor/unit and/or counseling patient: Exam 2 Const: General: comfortable, no acute distress and alert Resp: Effort & Inspection: normal respiratory effort Auscultation: no crackles, no rales and no rhonchi Cardio: Rate: regular rate Heart sounds: no click, no murmurs and no rubs GI: Inspection: non-distended GI Palp: No Tenderness to palpation present (GI) Auscultation: normal bowel sounds Other: Incision - CDI Extrem: General: normal to inspection, no pedal edema and no calf tenderness
--- NOTE | 2025-04-12 10:05 | PC.NURSE ---
0615 Mother had called out for assistance waking , CLC RN advised mother to put baby skin to skin, rub her back and watch for baby to show feeding cues. CLC RN to return in 15 minutes to see if baby had awoken and was able to latch. Reported to Primary RN. 0630 CLC RN returned and was showing feeding cues and raising her head while skin to skin on mother. Mother was able to hand express many drops of colostrum to entice baby and she was able to optimally latch baby on her left breast in the football position. Education given to the mother of how to visualize the suckling (with good rocking jaw motion) swallows (dropping of the lower jaw) and how to listen for drinking at the breast (the ka sound). The was [able] to maintain latch without discomfort to mother. Nipple care reviewed with optimal latch, good positioning and using clean hands when touching her breast. Resources used to facilitate learning were used from the [visual handouts/ tool/mom and baby guide]. Mother voiced understanding of the education shared, to call for assistance if the does not latch or if there is discomfort with . Reported to the Primary RN.
--- NOTE | 2025-04-12 12:28 | WPDANESPN ---
Anes - Prog Note Post-Op Date/Time: 04/12/25 12:28 Cardiovascular status: normal Respiratory status: normal Airway patency: baseline Mental status: baseline Post-Op hydration status: normal Vital Signs: Last Vital Signs Temp 98.2 F 04/12/25 08:10 Pulse 72 04/12/25 08:10 Resp 16 04/12/25 08:10 BP 129/70 04/12/25 08:10 Pulse Ox 99 04/12/25 08:10 O2 Del Method Room Air 04/11/25 20:00 Pain Score (VAS): 0/10 Laboratory Tests 04/12/25 03:49 04/12/25 03:49 Hgb 11.4 L Hct 34.1 L Post-procedural complaints: none Patient Feedback: Patient satisfied with anesthetic care.
[2025-04-13 08:03] VITALS: BP 120/64; PULSE 68; RESP 18; O2SAT 100
--- NOTE | 2025-04-13 13:21 | P.DS_ITS ---
DS: Admitting Diagnosis Discharge Date 04/12/25 Admitting Diagnosis labor DS: Discharge Diagnosis Discharge Diagnosis (1) Vaginal delivery: Code(s): O80 - Encounter for full-term uncomplicated delivery Status: Acute OB - DS: Summary OB Procedures : None OB Procedures Intrapartum: Spontaneous Vag Delivery OB Procedures: : None Peripartum Data Laceration Description: None Time Spent with Patient Time attestation: Total time spent providing and/or coordinating discharge services: Discharge Plan Discharge Attending physician on discharge: Mario Hamilton Consulting providers: Marci Don Jan E. Jr. Discharging Clinician: Mario Hamilton Patient Disposition: Home Activity: may shower and pelvic rest Diet: regular Discharge Instructions: Education: Mom and Baby Guide Given to: Mother Follow-Up: Call your delivering provider's office for an appointment to be seen in: 2 Weeks Mom [facility] for the follow-up appointment. Appointment Date/Time: April 13, 2025 at 8:00 am What to expect at your follow-up visit: Blood Pressure Check Physical Assessment Call [phone] if you are unable to keep your appointment time. BREAST CARE: * Wear a snug supportive bra. * For engorgement discomfort: Breast Feeding: * Apply warm moist washcloths * Express milk as needed to relieve engorgement * Wear loose clothing Bottle Feeding: * May apply ice packs * For sore nipples: * Identify correct latch-on * Apply warm moist washcloths before and after nursing * Air dry nipples after nursing * May apply Lansinoh cream to nipples ABDOMINAL INCISION: (if applicable) * Allow incision to air dry * Do NOT use lotions for powders on your incision * When showering, allow soap and water to run over the incision, but do not wash incision EPISIOTOMY/PERINEAL CARE: * Until bleeding stops, use your deanna bottle after urinating * Change your pad frequently throughout the day * You may take sitz baths several times a day (fill your bathtub with warm water and soak for 20 minutes.) Do NOT bathe in the water * No tub baths until seen by your physician - You may shower ACTIVITY: * Rest as much as possible. * Do not exercise or lift anything heavier than your baby (such as laundry or other children.) * Avoid stairs or driving as much as possible. * Do not put anything into the vagina. No douching, tampons, or sexual activity until seen by physician. NOTIFY PHYSICIAN IF YOU HAVE ANY QUESTIONS OR IF ANY OF THE FOLLOWING SYMPTOMS OCCUR: * If your episiotomy or incision becomes red, swollen, or more painful than what you have experienced in the hospital. * If your vaginal bleeding becomes foul smelling. * If your vaginal bleeding becomes more heavy than a period or if your bleeding changes from pink to bright red. However, you may pass an occasional walnut- sized clot once or twice for the first week . * If you experience a sharp, shooting pain in you calves. * If you discover a hard, reddened area on your breast or if you experience flu- like symptoms. DIET: * Eat regular, well-balanced meals. * Drink plenty of fluids daily. If , drink to thirst. Patient Language: Taiwanese Stand Alone Forms: General Discharge Information Follow-up/Referrals: Mario Hamilton MD [Physician, [employer]] Discharge Medications: Continued famotidine [Acid Controller] 20 mg tablet 20 mg PO BID aspirin 81 mg tablet 81 mg PO DAILY cetirizine 5 mg Tablet 5 mg PO DAILY PRN (Reason: Allergy Symptoms) funmi saucedo min-iron-folic Tablet 1 tablet PO DAILY Date of admission: 04/11/25 05:52 Primary Care Provider: PHYSICIAN,ANIMAL NUTRITIONIST Admitting Provider: Mario Hamilton Attending physician on admission: Mario Hamilton Condition: Stable
== END 2025-04-12 11:13 | disposition home or self-care (01) | DRG 807 ==
LOC: ANHLDR 05:58 → ANHOB2 04-12 09:13 → ANHLDR 04-13 09:30
PROVIDERS: Advanced Practice Midwife; Admitting Provider Obstetrics & Gynecology; Visit Provider Obstetrics & Gynecology
DX: O69.81X0 Labor and delivery complicated by cord around neck, without compression, not applicable or unspecified (principal); Z37.0 Single live birth; Z3A.39 39 weeks gestation of pregnancy; O77.0 Labor and delivery complicated by meconium in amniotic fluid
CPT/HCPCS: 36415; 85014; 85018; 85025; 86593; 86850; 86900; 86901; J0690; A9270; J2590; J2795; J7120